=== PATIENT | male | born 1965 | race Caucasian/White ===

== ENCOUNTER 2016-04-16 10:38 | Inpatient (IN) | payer MEDICARE, OTHER ==
[~2016-04-16] VITALS: Ht 170.2 cm; Wt 72.3 kg
[~2016-04-16 10:38] MED LIST: ALEN70TA39 PO; CALCIUM PO; CORT1OIN2 TOP; DEPA500T2 PO; DERMOPLAST TOP; EXCETAB80 PO; FOLI1TAB2 PO; FOSA70TA PO; IMOD2TAB14 PO; LOMO2.5T PO; MERC50TA2 PO; OMEP20CA3 PO; ONDA1TAB15 PO; OXYC1TAB23 PO; POTA20EL PO; POTA4.25 PO; PROZ40CA PO; SULF1TAB PO; SULF500T2 PO; VIT D PO; VITA-113 SC; VITA1CAP25 PO; VITA500046 PO; VITA500055 PO; ZOFR20TA PO
[2016-04-16] MEDS ORDERED: HALOPERIDOL 5 MG TAB As Ordered ONE (11:00)
[2016-04-16] MEDS ORDERED: LORazepam 1 MG TAB As Ordered ONE (11:00)
[2016-04-16] MEDS ORDERED: BENZTROPINE 1 MG TAB PO ONE (11:30)
[2016-04-16 12:55] LABS: MEAN CORPUSCULAR HEMOGLOBIN 30.7 pg (27.0-33.0); MEAN CORPUSCULAR HGB CONC 34.3 g/dl (32.0-36.5); MEAN CORPUSCULAR VOLUME 89.5 fl (80.0-96.0); RED CELL DISTRIBUTION WIDTH 13.7 % (11.5-14.5); WHITE BLOOD COUNT 7.4 K/mm3 (4.0-10.0)
[2016-04-16 13:15] LABS: AMPHETAMINES LEVEL URINE NEGATIVE (NEGATIVE); BENZODIAZEPINES URINE NEGATIVE (NEGATIVE); COCAINE METABOLITE URINE NEGATIVE (NEGATIVE); CONTROL LINE INT CTR LINE PRESENT; METHADONE URINE NEGATIVE (NEGATIVE); OPIATES URINE NEGATIVE (NEGATIVE); TRICYCLIC ANTIDEPRESS URINE NEGATIVE (NEGATIVE)
[2016-04-16 13:21] LABS: ANION GAP 9 MEQ/L (8-16); BLOOD UREA NITROGEN 7 MG/DL (7-18); CARBON DIOXIDE LEVEL 28 MEQ/L (21-32); CHLORIDE LEVEL 105 MEQ/L (98-107); CREATININE FOR GFR 0.93 MG/DL (0.70-1.30); GLOMERULAR FILTRATION RATE > 60.0 (>60); GLUCOSE, FASTING 92 MG/DL (70-105); POTASSIUM SERUM 3.9 MEQ/L (3.5-5.1); SODIUM LEVEL 142 MEQ/L (136-145)
[2016-04-16 13:22] LABS: ALBUMIN 4.4 GM/DL (3.2-5.2); ALBUMIN/GLOBULIN RATIO 1.38 (1.00-1.93); ALKALINE PHOSPHATASE 73 U/L (45-117); ALT/SGPT 53 U/L (12-78); AST/SGOT 37 U/L (15-37); BILIRUBIN,DIRECT 0.1 MG/DL (0.0-0.2); BILIRUBIN,TOTAL 0.4 MG/DL (0.2-1.0); CALCIUM LEVEL 9.2 MG/DL (8.5-10.1); TOTAL PROTEIN 7.6 GM/DL (6.4-8.2)
--- NOTE | 2016-04-16 14:46 | EDDOCDS ---
Physician Documentation [facility] Name: Jackson Rojas Age: 50 yrs Sex: Male : 1965 Arrival Date: 04/16/2016 Time: 10:38 Bed U3 Private MD: Disposition: 04/16 14:22 Critical Care: Critical care not applicable. pc Disposition: 04/16/16 14:23 Hospitalization ordered by Mattie Harris for Inpatient Admission. Preliminary diagnosis is Delusional disorders. - Bed requested for Admit. - Status is Inpatient Admission. rs3 - Condition is Stable. - Problem is new. - Symptoms are unchanged. HPI: 11:10 This 50 yrs old Male presents to ER via Police Car with complaints of Psych pc Problem. 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 Narayanan. A reliable pc history and/or examination was not able to be obtained, due to an uncooperative/violent patient. The patient presents to the emergency department with paranoia. He has been off of his meds and missing his appointment and a brain picker order was requested by his Psychiatrist. He is arguing with the [facility] that escorted him here, with fleeting ideas and paranoid themes. Historical: - Allergies: Dilaudid (Rash); GABAPENTIN (mood swings); Vicodin; - Home Meds: 1. alendronate 70 mg oral tab 1 tab once wkly 2. Prozac 40 mg Oral cap 1 cap once daily 3. Lomotil 2.5-0.025 mg oral tab 1 tabs 4 times per day PRN 4. Imodium A-D 2 mg oral tab 8 times daily as needed 5. mercaptopurine 50 mg oral tab 1.5 tab once daily 6. Sulfazine 500 mg oral tab 6 tab daily 7. omeprazole 20 mg Oral cpDR 1 cap once daily 8. Vitamin D3 5,000 unit oral tab 2 x a week 9. ondansetron HCl 4 mg Oral tab every 8 hours 10. vitamin b12 1000 units SQ monthy 11. lidocaine 5% application to affected area as needed 12. Potassium Chloride Oral 1 cap once daily 13. acyclovir 800 mg Oral tab daily 14. tamsulosin 0.4 mg oral cp24 1 cap once daily 15. ketorolac 10 mg Oral tab 1 tab every 6 hours as needed 16. oxybutynin chloride 5 mg Oral tab every 8 hours PRN 17. oxycodone-acetaminophen 5-325 mg Oral tab 1 tab every 6 hours prn - PMHx: Arthritis; Chron's Disease; Depression; GERD; Kidney stones; Shingles; - PSHx: multiple bowel resections; Appendectomy; laser surgery with stent placement in right kidney; - The history from nurses notes was reviewed: but there are no nursing notes, or only partial notes available at the time of my charting. - Social history: Smoking status: unknown if patient ever smoked tobacco. No barriers to communication noted, The patient speaks fluent Wolof, Speaks appropriately for age. - : The pt / caregiver states he / she is not on anticoagulants. Home medication list is obtained from pain clinic report. - Exposure Risk Screening:: None identified. - Immunization history:: unknown. - Family history: Not pertinent. - Social history:: the patient smokes cigarettes the patient drinks alcohol. ROS: 11:10 unable to reliably obtain . pc Exam: 11:10 General Appearance: alert, no acute distress. pc 11:10 ENT: pharynx normal. 11:10 Eyes: pupils equal, round and reactive to light, extraocular motions intact. 11:10 Neck: The exam reveals no acute abnormalities. ROM is normal and painless. No nuchal rigidity is noted.. 11:10 Respiratory: breathing is even and unlabored, breath sounds are normal. 11:10 Cardiovascular: regular pulse rate, regular heart rhythm, normal heart sounds, equal and full pulses bilaterally. 11:10 Skin: skin color is normal, warm, dry. 11:10 Extremities: The extremities have a grossly normal appearance. 11:10 Neuro: alert, cranial nerves normal as tested, no motor deficits, no sensory deficits. 11:10 Psych: mood is hostile, affect is animated. Vital Signs: 11:19 BP 177 / 90; Pulse 90; Resp 18; Temp 99.1(TE); Pulse Ox 98% on R/A; Pain 8/10; mdr 14:39 BP 123 / 65; Pulse 85; Resp 17; Temp 97.2(O); Pulse Ox 97% on R/A; pjf MDM: 10:55 Consult PFS/PSA/Dairy Processing Equipment Operator: Patient's case requires discussion with on-call pc Psychiatrist ordered. 10:55 PSA/PFS to call Nursing Government Affairs Specialist, to enter patient data on [facility] Safe Act if patient pc involuntarily admitted or transferred for SI or HI ordered. 10:55 Confirm accurate psychiatric medication list and times of last dosage ordered. pc 10:55 Detain Pt Until Medically/PFS Cleared ordered. pc 10:56 Haloperidol 5 mg PO once ordered. pc 10:56 LORazepam 2 mg PO once ordered. pc 10:56 Benztropine 1 mg PO once ordered. pc 10:56 Acetaminophen Level Ordered. EDMS 10:56 Basic Metabolic Profile Ordered. EDMS 10:56 Complete Blood Count Ordered. EDMS 10:56 Drug Eval Toxicology ED Only Ordered. EDMS 10:56 Ethyl Alcohol (ethanol) Ordered. EDMS 10:56 Liver Profile Ordered. EDMS 10:56 Salicylate Level Ordered. EDMS 10:56 Thyroid Stimulating Hormone Ordered. EDMS 10:56 DEPAKOTE Ordered. EDMS 11:10 Differential diagnosis: paranoia/psychosis. Plan: labs, meds, PFS when cleared. pc 11:17 Financial registration complete. mm15 12:13 [facility] Payment Agreement was scanned into [employer] and attached to record. mm15 12:46 REGULAR DIET ROOM SERVICE ED+DIET ordered. EDMS 13:27 Acetaminophen Level Reviewed. pc 13:27 Salicylate Level Reviewed. pc 13:27 DEPAKOTE Reviewed. pc 13:27 Basic Metabolic Profile Reviewed. pc 13:27 Complete Blood Count Reviewed. pc 13:27 Drug Eval Toxicology ED Only Reviewed. pc 13:27 Ethyl Alcohol (ethanol) Reviewed. pc 13:27 Liver Profile Reviewed. pc 13:27 Thyroid Stimulating Hormone Reviewed. pc 13:32 SYNTHETIC THC URINE Ordered. EDMS 13:45 BED REQUEST+ADM ordered. EDMS 14:12 [facility] Legal paperwork was scanned into [employer] and attached to record. ml4 14:12 Admit to IM: ordered. EDMS 14:22 The patient has been medically cleared for psychiatric evaluation, admission and/or pc transfer. [place] Safe Act reporting: Reporting to the [place] Safe Act was not completed because the patient did not display any suicidal or homicidal ideation and was not considered a risk to self or others. Data reviewed: old medical records, vital signs, nurses notes, lab test results. Test interpretation: LAB - all labs as ordered have been reviewed, interpreted and considered in the overall management of the clinical presentation;. The patient has been re-examined and re-evaluated. The patient's symptoms have mildly improved after treatment. Disposition: The historical points, examination findings, and any diagnostic results supporting the provided diagnosis, were discussed with the patient or legal guardian. The need for further work-up and/or treatment in the hospital was explained. Administered Medications: 11:18 Drug: Haloperidol 5 mg [haloperidol 5 mg tablet (1 tabs)] Route: PO; js13 11:18 Drug: LORazepam 2 mg [lorazepam 1 mg tablet (2 tabs)] Route: PO; js13 12:00 Drug: Benztropine 1 mg [benztropine 1 mg tablet (1 tabs)] Route: PO; js13 Signatures: Dispatcher [employer] EDMS Demarco Broussard MD MD pc Kim-Ashcraft, Connie,RN RN ck1 Rosanne Oquendo, PSA PSA ml4 Carey SimonRN RN rs3 Lc Wilkins mm15 Mary Burden RN RN aa3 Allyn Nath RN [id number] The chart was reviewed and I authenticate all verbal orders and agree with the evaluation and treatment provided.Attachments: 12:13 [facility] Payment Agreement mm15 MTDD
--- NOTE | 2016-04-16 14:46 | EDDOCDS ---
Nurse's Notes [facility] Name: Jackson Rojas Age: 50 yrs Sex: Male : 1965 Arrival Date: 04/16/2016 Time: 10:[address] MD: Diagnosis: Delusional disorders Presentation: 04/16 10:47 Presenting complaint: [facility] police. Mental Health Triage Level: Level 2: The patient aa3 was brought to the ED for evaluation because of a legal pickup order. Adult Sepsis Screening: Patient has new or worsening altered mentation (1 point). Patient's respiratory rate is less than 22. Systolic blood pressure is greater than 100. Patient has a qSOFA score of 1- Negative Sepsis Screen. Mental Health Triage Level: Level 2: The patient was brought to the ED for evaluation because of a legal pickup order. Suicide/Homicide risk assessment- the patient denies having any suicidal and/or homicidal ideations and does not present with any other emotional, behavioral or mental health complaints. Status: Patient is not a guest service representative or dependent. Transition of care: patient was not received from another setting of care. 10:47 Acuity: JESSEE Level 3 aa3 10:47 Method Of Arrival: Police Car aa3 10:47 Presenting complaint: Patient did not sahow up for Dr. Narayanan appointment. Pick-up order aa3 was placed. Triage Assessment: 14:20 General: Appears in no apparent distress. Pain: Denies pain. Pt Declines HIV testing. rs3 Historical: - Allergies: Dilaudid (Rash); GABAPENTIN (mood swings); Vicodin; - Home Meds: 1. alendronate 70 mg oral tab 1 tab once wkly 2. Prozac 40 mg Oral cap 1 cap once daily 3. Lomotil 2.5-0.025 mg oral tab 1 tabs 4 times per day PRN 4. Imodium A-D 2 mg oral tab 8 times daily as needed 5. mercaptopurine 50 mg oral tab 1.5 tab once daily 6. Sulfazine 500 mg oral tab 6 tab daily 7. omeprazole 20 mg Oral cpDR 1 cap once daily 8. Vitamin D3 5,000 unit oral tab 2 x a week 9. ondansetron HCl 4 mg Oral tab every 8 hours 10. vitamin b12 1000 units SQ monthy 11. lidocaine 5% application to affected area as needed 12. Potassium Chloride Oral 1 cap once daily 13. acyclovir 800 mg Oral tab daily 14. tamsulosin 0.4 mg oral cp24 1 cap once daily 15. ketorolac 10 mg Oral tab 1 tab every 6 hours as needed 16. oxybutynin chloride 5 mg Oral tab every 8 hours PRN 17. oxycodone-acetaminophen 5-325 mg Oral tab 1 tab every 6 hours prn - PMHx: Arthritis; Chron's Disease; Depression; GERD; Kidney stones; Shingles; - PSHx: multiple bowel resections; Appendectomy; laser surgery with stent placement in right kidney; - The history from nurses notes was reviewed: but there are no nursing notes, or only partial notes available at the time of my charting. - Social history: Smoking status: unknown if patient ever smoked tobacco. No barriers to communication noted, The patient speaks fluent Iraqi, Speaks appropriately for age. - : The pt / caregiver states he / she is not on anticoagulants. Home medication list is obtained from pain clinic report. - Exposure Risk Screening:: None identified. - Immunization history:: unknown. - Family history: Not pertinent. - Social history:: the patient smokes cigarettes the patient drinks alcohol. Screenin:43 Screening information is obtained from the patient. Fall risk: No risks identified. rs3 Assistance ADL's: requires no assistance with activities of daily living. Abuse/DV Screen: The patient / caregiver reports he/she is: not in a situation that causes fear, pain or injury. Nutritional screening: No deficits noted. Advance Directives: Currently, there is no health care proxy. There is no active DNR order. home support is adequate. Assessment: 12:44 General: Appears in no apparent distress, Behavior is appropriate for age, cooperative. rs3 Pain: Denies pain. Neurological: Level of Consciousness is awake, alert, Oriented to person, place, time. Cardiovascular: Capillary refill < 3 seconds Heart tones S1 S2 present. Respiratory: Airway is patent Respiratory effort is even, unlabored. Derm: Skin is pink, warm & dry. 13:40 General: Appears in no apparent distress, Behavior is appropriate for age, cooperative. rs3 General: Eating lunch. . Pain: Denies pain. Neurological: No deficits noted. 14:25 General: Appears in no apparent distress, Behavior is appropriate for age, cooperative, rs3 denies of distress/pain. resting comfortable. . Mental Health Eval: 11:29 Mental health consult is initiated at 11:00. Status: The patient is not a ml4 guest service representative or dependent. [facility] Behavioral Health: The patient is established as a patient of [facility] Behavioral Health. Referral Information: Evaluation referral is generated by a police agency: [facility], Badge #[id number]) on a 9.41 . The patient was referred for evaluation because pt was recently seen on 04/14, however was discharged home. Over the past 2 days, pt continues decompensate and appears acutely psychotic from smoking Marijuana. . Subjective: The patients chief complaint is pt states, "I'm done and I need to contact Dr. Narayanan because his anti-suicidal word is uncle." Pt appears acutely psychotic and is religiously pre-occupied. He repeatedly is undressing himself leaving himself naked while urinating on the floor. He's making comments that do not makes sense, e.g., " Lets get the earth moving." Pt is not coherent, appears to be responding to internal stimuli. PSA contacted pt's (Xenia, ) who reports pt has been seeing Dr. Narayanan for the past 15 years, mostly for depression and anxiety. He started to exhibit psychotic behavior after smoking Marijuana (Apr, 2015) for the first time to help with nerve pain from Shingles. adds, pt stopped taking his Prozac 1 month ago and continues to not want to take his Xanax, he missed his last appt with Dr. Narayanan. Pt continues to smoke Marijuana and now it's increasing in frequency causing pt to decompensate further. Allegedly, pt ingested an unknown substance with Marijuana this morning which may be contributing to his behavior. Pt has been praying to God to kill him, which is not typical behavior for him due to not being a anabaptism person. adds pt grabbed his 21 year old daughter and 12 year old grandson 2 days ago and held them on the couch due to fearing for their safety. Pt felt something bad was going to happen to them and refused to let them go until he was convinced otherwise. Pt denies SI and HI, however is not safe to be d/c due to the severity of his psychosis. Additionally, pt is reported to be paranoid due to suspecting his is cheating on him. . Delusions are anabaptism, paranoid, Patient's mood is anxious, elevated, Auditory Hallucinations are suspected. Visual Hallucinations are suspected. Mental Health history: anxiety, depression, Substance abuse psychosis, rule out bi-polar disorder . Mental Health Admissions: [facility] 11/29/15 and discharged 12/11/15 Current Outpatient Mental Health Services: Psychiatrist / Agency: Dr. Narayanan/[facility] . Mental Health history: Current living environment is Family / Home Support: adequate The patient currently lives. Patient presents to Emergency Department with the following symptoms within the past 2 weeks: agitation, anger, anxiety, decreased appetite, delusions of grandeur, pt believes he has special baird with God. . depressed mood, auditory hallucinations visual hallucinations, paranoia, poor concentration, poor impulse control, psychosis, sleep disturbance - insomnia, suicidal ideation with no plan. Substance abuse: Patient uses marijuana. Mental status exam: Patients appearance is appropriate, Patient's behavior is bizarre, Speech is pressured. Affect is labile. Mood is anxious. Hallucinations are Denied, however heavily suspected . Appetite is poor. Memory is fair. Energy level is hyperactive. Content of thought is paranoid. as described above delusional. as described above Thought process is incoherent. Cognitive level is Oriented to person, Patient's insight is poor. Judgement is poor. Rapport with interviewer is poor. Suicidal Ideation is not present. Homicidal ideation is not present. Disposition: Medically cleared for disposition by Demarco Broussard MD. Narrative: Awaiting psychiatric consult... 13:36 Disposition: Psychiatric Consult is performed by phone with Dr Mattie Harris. [facility] ml4 Admission Criteria: The patient displays symptoms of severe psychiatric disorder resulting in disordered behavior and significant interference with his / her ability to maintain self care. Hallucinations. Delusions. The patient requires continuous observation and/or control to protect self, others or property. The patient's care requires a multi-modal treatment plan under close supervision and coordination due to the complexity and severity of the patient's symptoms. The patient requires administration and monitoring of psychoactive medications by skilled medical providers due to the side effects of the psychoactive medications or significant dosage adjustments. Legal Status: Patient's legal status will be Emergency admission: [place] Safe Act: [place] Safe Act is applicable to this patient. The patient poses a risk to self or other and the Nursing Stock Broker Supervisor has been notified. He/She will enter the patient's data. DSM-V Differential Diagnosis: Substance/Medication-Induced Psychotic Disorder Delusions are severe. Hallucinations are severe. Abnormal psycho-motor behavior is. Insurance Pre-Certification: Not Required, Medicare and [employer] for life . Family Notification: Family notified of admission to [facility], Notification was given to . Narrative: Notice of Status and Rights, FAQ, and Bill of Rights was given at bedside. Awaiting: transfer to [facility]. Vital Signs: 11:19 BP 177 / 90; Pulse 90; Resp 18; Temp 99.1(TE); Pulse Ox 98% on R/A; Pain 8/10; mdr 14:39 BP 123 / 65; Pulse 85; Resp 17; Temp 97.2(O); Pulse Ox 97% on R/A; pjf Vitals: 14:44 Log In time N/A- police car arrival. rs3 ED Course: 10:39 Patient visited by Jaime Kenney, Reg. lg 10:[address] [facility] lg 10:47 Mary Burden,RN is Primary Nurse. aa3 10:47 Patient moved to [facility] aa3 10:48 Triage Initiated aa3 10:55 Demarco Broussard MD is Attending Physician. pc 11:00 Pt greeted and oriented to ED. Patient advised of names of staff involved in care, pjf location of call pnoce, wait times and NPO status. Accompanied by Law Enforcement, [facility] (9.41), Patient has correct armband on for positive identification. Placed in psych safe attire. Bed in low position. Call light in reach. Side rails up X 1. Security observing. Property removed, secured in belongings bag- Placed in locker #3. Door closed. Noise minimized. Visitors limited. Report received from [facility] - psych. triage level #2, ams, confused, ah, cooperative \\T\\ this time. The patient / caregiver is instructed regarding the plan of care and ED course. Psych Safety Check: Location: Psych Room. 11:07 Patient visited by Demarco Broussard MD. pc 11:20 Patient visited by Buzz Steel PCA. mdr 12:04 Patient visited by Ferendzo, Navneet, Security Aide. pjf 12:10 Carey Simon,RN is Primary Nurse. rs3 12:13 [facility] Payment Agreement was scanned into [employer] and attached to record. mm15 12:42 Acetaminophen Level Sent. mdr 12:42 Basic Metabolic Profile Sent. mdr 12:42 Complete Blood Count Sent. mdr 12:42 Drug Eval Toxicology ED Only Sent. mdr 12:42 Ethyl Alcohol (ethanol) Sent. mdr 12:43 Patient visited by Carey Simon RN. rs3 12:43 Liver Profile Sent. mdr 12:43 Thyroid Stimulating Hormone Sent. mdr 12:43 Salicylate Level Sent. mdr 12:44 Patient visited by Navneet Chavez Security Aide. pjf 12:44 DEPAKOTE Sent. rs3 13:00 pt. safety checks completed at approx. 15 min. intervals from the time of arrival to [facility] the time of this entry. prior to rec. medication patient was agitated and required frequent redirection and constant observation. post medication pt. has remained calm and cooperative. 13:01 Patient visited by Navneet Chavez Security Aide. pjf 13:11 Patient visited by Navneet Chavez Security Aide. pjf 13:34 Patient visited by Navneet Chavez Security Aide. pjf 13:45 Psych Safety Check: Location: Psych Room. Visual Assessment: Cooperative. pjf 14:01 Patient visited by Navneet Chavez Security Aide. pjf 14:12 [facility] Legal paperwork was scanned into [employer] and attached to record. ml4 14:14 Patient visited by Navneet Chavez Security Aide. pjf 14:23 Mattie Harris is Hospitalizing Provider. pc 14:44 No IV's were initiated during this patient's visit. No procedures done that require rs3 assistance. Administered Medications: 11:18 Drug: Haloperidol 5 mg [haloperidol 5 mg tablet (1 tabs)] Route: PO; js13 11:18 Drug: LORazepam 2 mg [lorazepam 1 mg tablet (2 tabs)] Route: PO; js13 12:00 Drug: Benztropine 1 mg [benztropine 1 mg tablet (1 tabs)] Route: PO; 13 Attachments: 14:12 [facility] Legal paperwork ml4 Order Results: Lab Order: Acetaminophen Level; SPEC'M 04/16/16 12:40 Test: ACETAMINOPHEN LEVEL; Value: < 2.0; Range: 10.0-30.0; Abnormal: Below low normal; Units: UG/ML; Status: F Lab Order: Basic Metabolic Profile; [facility] 04/16/16 12:40 Test: GLUCOSE, FASTING; Value: 92; Range: 70-105; Units: MG/DL; Status: F Test: BLOOD UREA NITROGEN; Value: 7; Range: 7-18; Units: MG/DL; Status: F Test: CREATININE FOR GFR; Value: 0.93; Range: 0.70-1.30; Units: MG/DL; Status: F Test: GLOMERULAR FILTRATION RATE; Value: > 60.0; Range: >60; Status: F Test: SODIUM LEVEL; Value: 142; Range: 136-145; Units: MEQ/L; Status: F Test: POTASSIUM SERUM; Value: 3.9; Range: 3.5-5.1; Units: MEQ/L; Status: F Test: CHLORIDE LEVEL; Value: 105; Range: 98-107; Units: MEQ/L; Status: F Test: CARBON DIOXIDE LEVEL; Value: 28; Range: 21-32; Units: MEQ/L; Status: F Test: ANION GAP; Value: 9; Range: 8-16; Units: MEQ/L; Status: F Test: CALCIUM LEVEL; Value: 9.2; Range: 8.5-10.1; Units: MG/DL; Status: F Test Note: ; Units are mL/min/1.73 m2 Chronic Kidney Disease Staging per NKF: Stage I & II GFR >=60 Normal to Mildly Decreased Stage III GFR 30-59 Moderately Decreased Stage IV GFR 15-29 Severely Decreased Stage V GFR <15 Very Little GFR Left ESRD GFR <15 on ELECTRICAL ASSEMBLY SUPERVISOR Lab Order: Complete Blood Count; [facility] 04/16/16 12:40 Test: WHITE BLOOD COUNT; Value: 7.4; Range: 4.0-10.0; Units: K/mm3; Status: F Test: RED BLOOD COUNT; Value: 4.78; Range: 4.30-6.10; Units: M/mm3; Status: F Test: HEMOGLOBIN; Value: 14.7; Range: 14.0-18.0; Units: g/dl; Status: F Test: HEMATOCRIT; Value: 42.8; Range: 42.0-52.0; Units: %; Status: F Test: MEAN CORPUSCULAR VOLUME; Value: 89.5; Range: 80.0-96.0; Units: fl; Status: F Test: MEAN CORPUSCULAR HEMOGLOBIN; Value: 30.7; Range: 27.0-33.0; Units: pg; Status: F Test: MEAN CORPUSCULAR HGB CONC; Value: 34.3; Range: 32.0-36.5; Units: g/dl; Status: F Test: RED CELL DISTRIBUTION WIDTH; Value: 13.7; Range: 11.5-14.5; Units: %; Status: F Test: PLATELET COUNT, AUTOMATED; Value: 238; Range: 150-450; Units: k/mm3; Status: F Lab Order: Drug Eval Toxicology ED Only; SPEC'M 04/16/16 12:40 Test: AMPHETAMINES LEVEL URINE; Value: NEGATIVE; Range: NEGATIVE; Status: F Test: BARBITURATES URINE; Value: NEGATIVE; Range: NEGATIVE; Status: F Test: BENZODIAZEPINES URINE; Value: NEGATIVE; Range: NEGATIVE; Status: F Test: CANNABINOIDS URINE; Value: NEGATIVE; Range: NEGATIVE; Status: F Test: COCAINE METABOLITE URINE; Value: NEGATIVE; Range: NEGATIVE; Status: F Test: METHADONE URINE; Value: NEGATIVE; Range: NEGATIVE; Status: F Test: OPIATES URINE; Value: NEGATIVE; Range: NEGATIVE; Status: F Test: TRICYCLIC ANTIDEPRESS URINE; Value: NEGATIVE; Range: NEGATIVE; Status: F Test Note: ; ALL PRESUMPTIVE POSITIVE FINDINGS ARE UNCONFIRMED NORMAL VALUES THRESHOLD IN NG/ML AMPHETAMINES 1000 METHAMPHETAMINES 1000 BARBITURATES 300 BENZODIAZEPINES 300 CANNABINOIDS (THC) 50 COCAINE METABOLITE 300 METHADONE 300 OPIATES 300 PHENCYCLIDINE 25 TRICYCLIC ANTIDEPRESSANTS 1000 RESULTS ARE FOR MEDICAL PURPOSES ONLY. ALL URINE SPECIMENS WILL BE SAVED FOR 3 DAYS. IF CONFIRMATION OF A PRESUMPTIVE POSTIVE SCREEN RESULT IS DESIRED, CALL CHEMISTRY ([phone]) AND REQUEST URINE TO BE SENT TO REFERENCE LAB. FOR A LIST OF CLOSELY RELATED COMPOUNDS PLEASE CALL THE LAB. Lab Order: Ethyl Alcohol (ethanol); SPEC'M 04/16/16 12:40 Test: ETHYL ALCOHOL (ETHANOL); Value: < 0.003; Range: 0.000-0.010; Units: %; Status: F Lab Order: Liver Profile; [facility] 04/16/16 12:40 Test: AST/SGOT; Value: 37; Range: 15-37; Units: U/L; Status: F Test: ALT/SGPT; Value: 53; Range: 12-78; Units: U/L; Status: F Test: ALKALINE PHOSPHATASE; Value: 73; Range: 45-117; Units: U/L; Status: F Test: BILIRUBIN,TOTAL; Value: 0.4; Range: 0.2-1.0; Units: MG/DL; Status: F Test: BILIRUBIN,DIRECT; Value: 0.1; Range: 0.0-0.2; Units: MG/DL; Status: F Test: TOTAL PROTEIN; Value: 7.6; Range: 6.4-8.2; Units: GM/DL; Status: F Test: ALBUMIN; Value: 4.4; Range: 3.2-5.2; Units: GM/DL; Status: F Test: ALBUMIN/GLOBULIN RATIO; Value: 1.38; Range: 1.00-1.93; Status: F Lab Order: Salicylate Level; [facility] 04/16/16 12:40 Test: SALICYLATE LEVEL; Value: < 1.7; Range: 5.0-30.0; Abnormal: Below low normal; Units: MG/DL; Status: F Lab Order: Thyroid Stimulating Hormone; [facility] 04/16/16 12:40 Test: THYROID STIMULATING HORMONE; Value: 1.940; Range: 0.358-3.740; Units: uIU/ML; Status: F Lab Order: DEPAKOTE; [facility] 04/16/16 12:40 Test: VALPROIC ACID (DEPAKOTE); Value: < 3.0; Range: 50.0-100.0; Abnormal: Below low normal; Units: UG/ML; Status: F Outcome: 14:23 Decision to Hospitalize by Provider. 14:43 Discharge Assessment: patient administered narcotics - no. The following High Risk rs3 Discharge criteria are identified: None. Admitted to [facility] accompanied by tech, via wheelchair, with chart. Condition: stable. No special radiology studies were completed. Admission hand-off: Report Faxed Fax receipt verified by unit staff. 14:45 Patient left the ED. rs3 Signatures: Demarco Broussard MD MD pc Ganter, LoriLee, Reilly Reg Navneet Godoy, AidMihaela Hughes,RN RN ck1 Rosanne Oquendo, PSA PSA ml4 Carey SimonRN RN rs3 Allyn Nath RN RN js13 Lc Wilkins mm15 Mary Burden RN RN aa3 Buzz Steel, POLICE AIDE POLICE AIDE mdr MTDD
[2016-04-16] MEDS ORDERED: MERC50TA2 PO (15:03)
[2016-04-16] MEDS ORDERED: ACYC800T PO (15:03)
[2016-04-16] MEDS ORDERED: OMEP20CA3 PO (15:03)
[2016-04-16] MEDS ORDERED: XANA0.25 PO (15:03)
[2016-04-16] MEDS ORDERED: ALEN70TA39 PO (15:03)
[2016-04-16] MEDS ORDERED: HYDR1TAB97 PO (15:03)
[2016-04-16 15:17] VITALS: BP 135/79
[2016-04-16] MEDS ORDERED: MOM 30ML SUSPENSION UDC PO PRN (16:30)
[2016-04-16] MEDS ORDERED: MAALOX 30 ML SUSP *UDC PO PRN (16:30)
[2016-04-16] MEDS: LORazepam 1 MG TAB PO PRN (22:34)
[2016-04-16] MEDS: diphenhydrAMINE 25 MG CAP PO PRN (22:34)
[2016-04-16] MEDS: traZODone 50 MG TAB PO PRN (22:35)
[2016-04-17] MEDS: LORazepam 1 MG TAB PO PRN ×2 (05:47→19:57)
[2016-04-17 06:34] VITALS: BP 122/85
[2016-04-17] MEDS: POTASSIUM CHLORIDE 10 MEQ SR TABLET PO SCH ×2 (09:00→19:57)
--- NOTE | 2016-04-17 10:14 | HPEPDOC ---
Medical History and Physical Date of Admission Apr 16, 2016 at 14:57 History and Physical PCP: [facility] Gastroenterology: Dr Betsy Gerber ATTENDING: Dr. Joseluis Salvador HPI: 50yoM admitted to [facility] for psychotic disorder unspecified, being medically examined today. No acute medical complaints today. Denies any fevers, chills, weakness, fatigue, DONOHUE, CP, SOB, cough, palpitations, abdominal pain, N/V/D or changes in bowel or bladder habits. PMHx: Crohn's disease Osteoporosis Depression Poor dentition GERD History of shingles/postherpetic neuropathy BPH OAB History of kidney stones PSHX: Multiple bowel resections Appendectomy Right renal stent/stent removal SOCHX: Resides in: [place] Marital Status: Kids: 2 Employment: Retired [employer] Tobacco use: Denies ETOH: 6 beers per month Illicit Drugs: Marijuana daily IV Drug Use: Denies Tattoos done unprofessionally: Denies FAMHX: Mother: Alive, well Father: , CAD Siblings: Alive, well Children: Alive, well Unexpected deaths due to medical reasons: None. ROS: As noted in HPI, otherwise 11pt ROS of systems reviewed and remarkable that patient states his Crohn's has been controlled. No abdominal pain. No diarrhea. No changes with bowel habits. PE: GEN: 50 yo M, appears stated age. Well-nourished, well developed. No acute distress. Alert and oriented x 3. Pleasant, interactive. HEENT: Normocephalic, atraumatic. Pupils are equal, round, and reactive to light. Extraocular movements are intact. No nystagmus appreciated. Sclera are nonicteric. Conjunctiva without injection. Nose midline. Nasal turbinates without bogginess. EACs both patent BL. TMs both visualized and palacios with good cone of light, no bulging or erythema. No facial asymmetry. Moist mucous membranes. Dentition poor. Pharynx pink and moist, no cobblestoning. Neck supple , trachea midline. No lymphadenopathy or thyromegaly appreciated. CHEST: Regular rate and rhythm, +S1, +S2 LUNGS: Clear to auscultation bilaterally. No wheezes, rales, or rhonchi. Breathing appears symmetric and easy. Patient is speaking in full sentences. No accessory muscle use. ABD: Round, soft, non-tender, non-distended. +Bowel sounds throughout. No rebound or guarding. No costovertebral angle tenderness. EXT: Pulses 2+ bilaterally dorsalis pedis and radial. No lower extremity edema appreciated. SKIN: [place], dry, warm. Capillary refill <2sec. No rashes. Multiple healed surgical scars on the abdomen NEURO: Alert and oriented x 3. Cranial nerves III-XII are intact. No focal deficits appreciated. EKG: Pending A&P: 50yoM admitted to [facility] for psychotic disorder unspecified 1. Psych. Plan per Psychiatry. Obtain baseline EKG to assure the safety of psychiatric medications as they can prolong the QT interval. 2. Crohn's disease. Continue sulfasalazine 1000 mg by mouth 4 times a day. Patient may use mercaptopurine 50 mg by mouth twice a day from home. 3. GERD. Continue Prilosec 20 mg daily. 4. [facility] 5. Substance use. Per psychiatry. 6. Postherpetic neuralgia. Continue acyclovir 800 mg daily as previously recommended as per pain clinic. Patient states he has not been using any Percocet. 7. Poor dentition. Patient has dental appointment at discharge with MA. Patient states no current dental issues or pain. Vital Signs Vital Signs Label Value Date Time Patient Temperature 96.2 degrees F 04/17/16 0634 Temperature Source Tympanic 04/17/16 0634 Pulse 77 04/17/16 0634 Respiratory Rate 18 bpm 04/17/16 0634 Blood Pressure Assessment 122/85 (97) 04/17/16 0634 Laboratory Data Labs 24H Laboratory Tests 2 04/16/16 12:40: Acetaminophen Level < 2.0L, Aspartate Amino Transf (AST/SGOT) 37, Alanine Aminotransferase (ALT/SGPT) 53, Alkaline Phosphatase 73, Total Bilirubin 0.4, Direct Bilirubin 0.1, Albumin 4.4, Albumin/Globulin Ratio 1.38, Anion Gap 9, Calcium Level 9.2, Ethyl Alcohol Level < 0.003, Glomerular Filtration Rate > 60.0, Salicylates Level < 1.7L, Thyroid Stimulating Hormone (TSH) 1.940, Total Protein 7.6, Urine Amphetamine Level NEGATIVE, Urine Benzodiazepines Screen NEGATIVE, Urine Cannabinoids NEGATIVE, Urine Cocaine Metabolite NEGATIVE, Urine Opiates Screen NEGATIVE, Urine Barbiturates, Qualitative NEGATIVE, Urine Methadone Screen NEGATIVE, Urine Tricyclic Antidepressants NEGATIVE, Valproic Acid (Depakene) Level < 3.0L 04/16/16 14:29: CBC/BMP Laboratory Tests 04/16/16 12:40 Red Blood Count 4.78, Mean Corpuscular Volume 89.5, Mean Corpuscular Hemoglobin 30.7, Mean Corpuscular Hemoglobin Concent 34.3, Red Cell Distribution Width 13.7 Home Medications Scheduled Acyclovir (Acyclovir) 800 Mg Tab 800 MG PO DAILY Alendronate Sodium (Alendronate Sodium) 70 Mg Tab 70 MG PO QWEEK Cholecalciferol (Vitamin D) 5,000 Unit Tab 5,000 UNIT PO 2XW Nutritional supplement Cyanocobalamin (Vitamin B-12) 1,000 Mcg Sub 1,000 MCG SC QMONTH Nutritional supplement Fluoxetine HCl (Prozac) 40 Mg Cap 40 MG PO DAILY FILLED 11/29/15 FOR 90 DAYS Mercaptopurine (Mercaptopurine) 50 Mg Tab 50 MG PO BID Omeprazole (Omeprazole) 20 Mg Cap 20 MG PO DAILY Gerd Potassium Citrate (Potassium Citrate ER) 15 Meq Tab 15 MEQ PO BID Sulfasalazine (Sulfasalazine) 500 Mg Tab 1,000 MG PO QID Bowel care with Crohn' s diseas Scheduled PRN Acetaminophen/Hydrocodone (Hydrocodone/Acetaminophen 5-325 mg) 1 Tab Tab 1 TAB PO DAILY PRN PRN PAIN Alprazolam (Xanax) 0.25 Mg Tab 0.25 MG PO BID PRN PRN ANXIETY Allergies Coded Allergies: Hydromorphone (Unverified Adverse Reaction, Intermediate, vomitting and hives, 11/29/15) Gabapentin (Verified Adverse Reaction, Unknown, moodswings, 11/29/15) Patti Buchanan Apr 17, 2016 10:13
[2016-04-17] MEDS: OMEPRAZOLE 20 MG CAP PO SCH (11:03)
[2016-04-17] MEDS: sulfaSALAzine 500 MG TABEC PO SCH ×4 (11:03→19:58)
[2016-04-17] MEDS: ACYCLOVIR 200 MG CAPSULE PO SCH (11:04)
[2016-04-17] MEDS: ACETAMINOPHEN TAB 650MG DOSE (2X325MG) PO PRN (13:10)
[2016-04-17] MEDS: EXCEDRIN MIGRAINE TABLET PO PRN (16:27)
[2016-04-17 18:00] VITALS: BP 140/75
[2016-04-17] MEDS: diphenhydrAMINE 25 MG CAP PO PRN (19:57)
[2016-04-17] MEDS: traZODone 50 MG TAB PO PRN (19:57)
[2016-04-18 06:48] VITALS: BP 141/68
[2016-04-18] MEDS: sulfaSALAzine 500 MG TABEC PO SCH ×4 (08:06→21:03)
[2016-04-18] MEDS: OMEPRAZOLE 20 MG CAP PO SCH (08:06)
[2016-04-18] MEDS: ACYCLOVIR 200 MG CAPSULE PO SCH (08:06)
[2016-04-18] MEDS ORDERED: INFLUENZA QUADRIVALENT PF VACCINE 0.5ML SYRINGE/VIAL (90686) IM ONE (09:00)
[2016-04-18] MEDS: POTASSIUM CHLORIDE 10 MEQ SR TABLET PO SCH ×2 (09:00→21:03)
[2016-04-18] MEDS: ACETAMINOPHEN TAB 650MG DOSE (2X325MG) PO PRN ×2 (14:05→21:04)
--- NOTE | 2016-04-18 15:46 | EDDOCDS ---
Physician Documentation [facility] Name: Jackson Rojas Age: 50 yrs Sex: Male : 1965 Arrival Date: 04/16/2016 Time: 10:38 Bed U3 Private MD: Disposition: 04/16 14:22 Critical Care: Critical care not applicable. pc Disposition: 04/16/16 14:23 Hospitalization ordered by Mattie Harris for Inpatient Admission. Preliminary diagnosis is Delusional disorders. - Bed requested for Admit. - Status is Inpatient Admission. rs3 - Condition is Stable. - Problem is new. - Symptoms are unchanged. HPI: 11:10 This 50 yrs old Male presents to ER via Police Car with complaints of Psych pc Problem. 11:10 The history is obtained from the patient, a police records clerk, Dr. Narayanan. A reliable pc history and/or examination was not able to be obtained, due to an uncooperative/violent patient. The patient presents to the emergency department with paranoia. He has been off of his meds and missing his appointment and a seed cone picker order was requested by his Psychiatrist. He is arguing with the [facility] that escorted him here, with fleeting ideas and paranoid themes. Historical: - Allergies: Dilaudid (Rash); GABAPENTIN (mood swings); Vicodin; - Home Meds: 1. alendronate 70 mg oral tab 1 tab once wkly 2. Prozac 40 mg Oral cap 1 cap once daily 3. Lomotil 2.5-0.025 mg oral tab 1 tabs 4 times per day PRN 4. Imodium A-D 2 mg oral tab 8 times daily as needed 5. mercaptopurine 50 mg oral tab 1.5 tab once daily 6. Sulfazine 500 mg oral tab 6 tab daily 7. omeprazole 20 mg Oral cpDR 1 cap once daily 8. Vitamin D3 5,000 unit oral tab 2 x a week 9. ondansetron HCl 4 mg Oral tab every 8 hours 10. vitamin b12 1000 units SQ monthy 11. lidocaine 5% application to affected area as needed 12. Potassium Chloride Oral 1 cap once daily 13. acyclovir 800 mg Oral tab daily 14. tamsulosin 0.4 mg oral cp24 1 cap once daily 15. ketorolac 10 mg Oral tab 1 tab every 6 hours as needed 16. oxybutynin chloride 5 mg Oral tab every 8 hours PRN 17. oxycodone-acetaminophen 5-325 mg Oral tab 1 tab every 6 hours prn - PMHx: Arthritis; Chron's Disease; Depression; GERD; Kidney stones; Shingles; - PSHx: multiple bowel resections; Appendectomy; laser surgery with stent placement in right kidney; - The history from nurses notes was reviewed: but there are no nursing notes, or only partial notes available at the time of my charting. - Social history: Smoking status: unknown if patient ever smoked tobacco. No barriers to communication noted, The patient speaks fluent Ukrainian, Speaks appropriately for age. - : The pt / caregiver states he / she is not on anticoagulants. Home medication list is obtained from pain clinic report. - Exposure Risk Screening:: None identified. - Immunization history:: unknown. - Family history: Not pertinent. - Social history:: the patient smokes cigarettes the patient drinks alcohol. ROS: 11:10 unable to reliably obtain . pc Exam: 11:10 General Appearance: alert, no acute distress. pc 11:10 ENT: pharynx normal. 11:10 Eyes: pupils equal, round and reactive to light, extraocular motions intact. 11:10 Neck: The exam reveals no acute abnormalities. ROM is normal and painless. No nuchal rigidity is noted.. 11:10 Respiratory: breathing is even and unlabored, breath sounds are normal. 11:10 Cardiovascular: regular pulse rate, regular heart rhythm, normal heart sounds, equal and full pulses bilaterally. 11:10 Skin: skin color is normal, warm, dry. 11:10 Extremities: The extremities have a grossly normal appearance. 11:10 Neuro: alert, cranial nerves normal as tested, no motor deficits, no sensory deficits. 11:10 Psych: mood is hostile, affect is animated. Vital Signs: 11:19 BP 177 / 90; Pulse 90; Resp 18; Temp 99.1(TE); Pulse Ox 98% on R/A; Pain 8/10; mdr 14:39 BP 123 / 65; Pulse 85; Resp 17; Temp 97.2(O); Pulse Ox 97% on R/A; pjf MDM: 10:55 Consult PFS/PSA/Client Server Developer: Patient's case requires discussion with on-call pc Psychiatrist ordered. 10:55 PSA/PFS to call Nursing Machining Associate, to enter patient data on [facility] Safe Act if patient pc involuntarily admitted or transferred for SI or HI ordered. 10:55 Confirm accurate psychiatric medication list and times of last dosage ordered. pc 10:55 Detain Pt Until Medically/PFS Cleared ordered. pc 10:56 Haloperidol 5 mg PO once ordered. pc 10:56 LORazepam 2 mg PO once ordered. pc 10:56 Benztropine 1 mg PO once ordered. pc 10:56 Acetaminophen Level Ordered. EDMS 10:56 Basic Metabolic Profile Ordered. EDMS 10:56 Complete Blood Count Ordered. EDMS 10:56 Drug Eval Toxicology ED Only Ordered. EDMS 10:56 Ethyl Alcohol (ethanol) Ordered. EDMS 10:56 Liver Profile Ordered. EDMS 10:56 Salicylate Level Ordered. EDMS 10:56 Thyroid Stimulating Hormone Ordered. EDMS 10:56 DEPAKOTE Ordered. EDMS 11:10 Differential diagnosis: paranoia/psychosis. Plan: labs, meds, PFS when cleared. pc 11:17 Financial registration complete. mm15 12:13 [facility] Payment Agreement was scanned into [employer] and attached to record. mm15 12:46 REGULAR DIET ROOM SERVICE ED+DIET ordered. EDMS 13:27 Acetaminophen Level Reviewed. pc 13:27 Salicylate Level Reviewed. pc 13:27 DEPAKOTE Reviewed. pc 13:27 Basic Metabolic Profile Reviewed. pc 13:27 Complete Blood Count Reviewed. pc 13:27 Drug Eval Toxicology ED Only Reviewed. pc 13:27 Ethyl Alcohol (ethanol) Reviewed. pc 13:27 Liver Profile Reviewed. pc 13:27 Thyroid Stimulating Hormone Reviewed. pc 13:32 SYNTHETIC THC URINE Ordered. EDMS 13:45 BED REQUEST+ADM ordered. EDMS 14:12 [facility] Legal paperwork was scanned into [employer] and attached to record. ml4 14:12 Admit to IM: ordered. EDMS 14:22 The patient has been medically cleared for psychiatric evaluation, admission and/or pc transfer. [place]: [place] to the [place] was not completed because the patient did not display any suicidal or homicidal ideation and was not considered a risk to self or others. Data reviewed: old medical records, vital signs, nurses notes, lab test results. Test interpretation: LAB - all labs as ordered have been reviewed, interpreted and considered in the overall management of the clinical presentation;. The patient has been re-examined and re-evaluated. The patient's symptoms have mildly improved after treatment. Disposition: The historical points, examination findings, and any diagnostic results supporting the provided diagnosis, were discussed with the patient or legal guardian. The need for further work-up and/or treatment in the hospital was explained. Administered Medications: 11:18 Drug: Haloperidol 5 mg [haloperidol 5 mg tablet (1 tabs)] Route: PO; js13 11:18 Drug: LORazepam 2 mg [lorazepam 1 mg tablet (2 tabs)] Route: PO; js13 12:00 Drug: Benztropine 1 mg [benztropine 1 mg tablet (1 tabs)] Route: PO; js13 Signatures: Dispatcher [employer] EDMS Demarco Broussard MD MD pc Kim-Ashcraft, Connie,RN RN ck1 Rosanne Oquendo, PSA PSA ml4 Carey SimonRN RN rs3 Lc Wilkins mm15 Mary Burden RN RN aa3 Allyn Nath RN js13 The chart was reviewed and I authenticate all verbal orders and agree with the evaluation and treatment provided.Attachments: 12:13 [facility] Payment Agreement mm15 Chart Complete MTDD
--- NOTE | 2016-04-18 15:46 | EDDOCDS ---
Physician Documentation [facility] Name: Jackson Rojas Age: 50 yrs Sex: Male : 1965 Arrival Date: 04/16/2016 Time: 10:38 Bed U3 Private MD: Disposition: 04/16 14:22 Critical Care: Critical care not applicable. pc Disposition: 04/16/16 14:23 Hospitalization ordered by Mattie Harris for Inpatient Admission. Preliminary diagnosis is Delusional disorders. - Bed requested for Admit. - Status is Inpatient Admission. rs3 - Condition is Stable. - Problem is new. - Symptoms are unchanged. HPI: 11:10 This 50 yrs old Male presents to ER via Police Car with complaints of Psych pc Problem. 11:10 The history is obtained from the patient, a [employer], Dr. Narayanan. A reliable pc history and/or examination was not able to be obtained, due to an uncooperative/violent patient. The patient presents to the emergency department with paranoia. He has been off of his meds and missing his appointment and a oyster picker order was requested by his Psychiatrist. He is arguing with the [facility] that escorted him here, with fleeting ideas and paranoid themes. Historical: - Allergies: Dilaudid (Rash); GABAPENTIN (mood swings); Vicodin; - Home Meds: 1. alendronate 70 mg oral tab 1 tab once wkly 2. Prozac 40 mg Oral cap 1 cap once daily 3. Lomotil 2.5-0.025 mg oral tab 1 tabs 4 times per day PRN 4. Imodium A-D 2 mg oral tab 8 times daily as needed 5. mercaptopurine 50 mg oral tab 1.5 tab once daily 6. Sulfazine 500 mg oral tab 6 tab daily 7. omeprazole 20 mg Oral cpDR 1 cap once daily 8. Vitamin D3 5,000 unit oral tab 2 x a week 9. ondansetron HCl 4 mg Oral tab every 8 hours 10. vitamin b12 1000 units SQ monthy 11. lidocaine 5% application to affected area as needed 12. Potassium Chloride Oral 1 cap once daily 13. acyclovir 800 mg Oral tab daily 14. tamsulosin 0.4 mg oral cp24 1 cap once daily 15. ketorolac 10 mg Oral tab 1 tab every 6 hours as needed 16. oxybutynin chloride 5 mg Oral tab every 8 hours PRN 17. oxycodone-acetaminophen 5-325 mg Oral tab 1 tab every 6 hours prn - PMHx: Arthritis; Chron's Disease; Depression; GERD; Kidney stones; Shingles; - PSHx: multiple bowel resections; Appendectomy; laser surgery with stent placement in right kidney; - The history from nurses notes was reviewed: but there are no nursing notes, or only partial notes available at the time of my charting. - Social history: Smoking status: unknown if patient ever smoked tobacco. No barriers to communication noted, The patient speaks fluent Swedish, Speaks appropriately for age. - : The pt / caregiver states he / she is not on anticoagulants. Home medication list is obtained from pain clinic report. - Exposure Risk Screening:: None identified. - Immunization history:: unknown. - Family history: Not pertinent. - Social history:: the patient smokes cigarettes the patient drinks alcohol. ROS: 11:10 unable to reliably obtain . pc Exam: 11:10 General Appearance: alert, no acute distress. pc 11:10 ENT: pharynx normal. 11:10 Eyes: pupils equal, round and reactive to light, extraocular motions intact. 11:10 Neck: The exam reveals no acute abnormalities. ROM is normal and painless. No nuchal rigidity is noted.. 11:10 Respiratory: breathing is even and unlabored, breath sounds are normal. 11:10 Cardiovascular: regular pulse rate, regular heart rhythm, normal heart sounds, equal and full pulses bilaterally. 11:10 Skin: skin color is normal, warm, dry. 11:10 Extremities: The extremities have a grossly normal appearance. 11:10 Neuro: alert, cranial nerves normal as tested, no motor deficits, no sensory deficits. 11:10 Psych: mood is hostile, affect is animated. Vital Signs: 11:19 BP 177 / 90; Pulse 90; Resp 18; Temp 99.1(TE); Pulse Ox 98% on R/A; Pain 8/10; mdr 14:39 BP 123 / 65; Pulse 85; Resp 17; Temp 97.2(O); Pulse Ox 97% on R/A; pjf MDM: 10:55 Consult PFS/PSA/Emt I/85: Patient's case requires discussion with on-call pc Psychiatrist ordered. 10:55 PSA/PFS to call Nursing Knitted Garment Finisher, to enter patient data on [facility] Safe Act if patient pc involuntarily admitted or transferred for SI or HI ordered. 10:55 Confirm accurate psychiatric medication list and times of last dosage ordered. pc 10:55 Detain Pt Until Medically/PFS Cleared ordered. pc 10:56 Haloperidol 5 mg PO once ordered. pc 10:56 LORazepam 2 mg PO once ordered. pc 10:56 Benztropine 1 mg PO once ordered. pc 10:56 Acetaminophen Level Ordered. EDMS 10:56 Basic Metabolic Profile Ordered. EDMS 10:56 Complete Blood Count Ordered. EDMS 10:56 Drug Eval Toxicology ED Only Ordered. EDMS 10:56 Ethyl Alcohol (ethanol) Ordered. EDMS 10:56 Liver Profile Ordered. EDMS 10:56 Salicylate Level Ordered. EDMS 10:56 Thyroid Stimulating Hormone Ordered. EDMS 10:56 DEPAKOTE Ordered. EDMS 11:10 Differential diagnosis: paranoia/psychosis. Plan: labs, meds, PFS when cleared. pc 11:17 Financial registration complete. mm15 12:13 [facility] Payment Agreement was scanned into [employer] and attached to record. mm15 12:46 REGULAR DIET ROOM SERVICE ED+DIET ordered. EDMS 13:27 Acetaminophen Level Reviewed. pc 13:27 Salicylate Level Reviewed. pc 13:27 DEPAKOTE Reviewed. pc 13:27 Basic Metabolic Profile Reviewed. pc 13:27 Complete Blood Count Reviewed. pc 13:27 Drug Eval Toxicology ED Only Reviewed. pc 13:27 Ethyl Alcohol (ethanol) Reviewed. pc 13:27 Liver Profile Reviewed. pc 13:27 Thyroid Stimulating Hormone Reviewed. pc 13:32 SYNTHETIC THC URINE Ordered. EDMS 13:45 BED REQUEST+ADM ordered. EDMS 14:12 [facility] Legal paperwork was scanned into [employer] and attached to record. ml4 14:12 Admit to IM: ordered. EDMS 14:22 The patient has been medically cleared for psychiatric evaluation, admission and/or pc transfer. [place]: [place] the [place] was not completed because the patient did not display any suicidal or homicidal ideation and was not considered a risk to self or others. Data reviewed: old medical records, vital signs, nurses notes, lab test results. Test interpretation: LAB - all labs as ordered have been reviewed, interpreted and considered in the overall management of the clinical presentation;. The patient has been re-examined and re-evaluated. The patient's symptoms have mildly improved after treatment. Disposition: The historical points, examination findings, and any diagnostic results supporting the provided diagnosis, were discussed with the patient or legal guardian. The need for further work-up and/or treatment in the hospital was explained. Administered Medications: 11:18 Drug: Haloperidol 5 mg [haloperidol 5 mg tablet (1 tabs)] Route: PO; js13 11:18 Drug: LORazepam 2 mg [lorazepam 1 mg tablet (2 tabs)] Route: PO; js13 12:00 Drug: Benztropine 1 mg [benztropine 1 mg tablet (1 tabs)] Route: PO; js13 Signatures: Dispatcher [employer] EDMS Demarco Broussard MD MD pc Kim-Ashcraft, Connie,RN RN ck1 Rosanne Oquendo, PSA PSA ml4 Carey SimonRN RN rs3 Lc Wilkins mm15 Mary Burden RN RN aa3 Allyn Nath RN js13 The chart was reviewed and I authenticate all verbal orders and agree with the evaluation and treatment provided.Attachments: 12:13 [facility] Payment Agreement mm15 Chart Complete MTDD
--- NOTE | 2016-04-18 15:47 | EDDOCDS ---
Nurse's Notes [facility] Name: Jackson Rojas Age: 50 yrs Sex: Male : 1965 Arrival Date: 04/16/2016 Time: 10:[address] MD: Diagnosis: Delusional disorders Presentation: 04/16 10:47 Presenting complaint: [facility] police. Mental Health Triage Level: Level 2: The patient aa3 was brought to the ED for evaluation because of a legal pickup order. Adult Sepsis Screening: Patient has new or worsening altered mentation (1 point). Patient's respiratory rate is less than 22. Systolic blood pressure is greater than 100. Patient has a qSOFA score of 1- Negative Sepsis Screen. Mental Health Triage Level: Level 2: The patient was brought to the ED for evaluation because of a legal pickup order. Suicide/Homicide risk assessment- the patient denies having any suicidal and/or homicidal ideations and does not present with any other emotional, behavioral or mental health complaints. Status: Patient is not a volunteer services director or dependent. Transition of care: patient was not received from another setting of care. 10:47 Acuity: JESSEE Level 3 aa3 10:47 Method Of Arrival: Police Car aa3 10:47 Presenting complaint: Patient did not sahow up for Dr. Narayanan appointment. Pick-up order aa3 was placed. Triage Assessment: 14:20 General: Appears in no apparent distress. Pain: Denies pain. Pt Declines HIV testing. rs3 Historical: - Allergies: Dilaudid (Rash); GABAPENTIN (mood swings); Vicodin; - Home Meds: 1. alendronate 70 mg oral tab 1 tab once wkly 2. Prozac 40 mg Oral cap 1 cap once daily 3. Lomotil 2.5-0.025 mg oral tab 1 tabs 4 times per day PRN 4. Imodium A-D 2 mg oral tab 8 times daily as needed 5. mercaptopurine 50 mg oral tab 1.5 tab once daily 6. Sulfazine 500 mg oral tab 6 tab daily 7. omeprazole 20 mg Oral cpDR 1 cap once daily 8. Vitamin D3 5,000 unit oral tab 2 x a week 9. ondansetron HCl 4 mg Oral tab every 8 hours 10. vitamin b12 1000 units SQ monthy 11. lidocaine 5% application to affected area as needed 12. Potassium Chloride Oral 1 cap once daily 13. acyclovir 800 mg Oral tab daily 14. tamsulosin 0.4 mg oral cp24 1 cap once daily 15. ketorolac 10 mg Oral tab 1 tab every 6 hours as needed 16. oxybutynin chloride 5 mg Oral tab every 8 hours PRN 17. oxycodone-acetaminophen 5-325 mg Oral tab 1 tab every 6 hours prn - PMHx: Arthritis; Chron's Disease; Depression; GERD; Kidney stones; Shingles; - PSHx: multiple bowel resections; Appendectomy; laser surgery with stent placement in right kidney; - The history from nurses notes was reviewed: but there are no nursing notes, or only partial notes available at the time of my charting. - Social history: Smoking status: unknown if patient ever smoked tobacco. No barriers to communication noted, The patient speaks fluent Stateless, Speaks appropriately for age. - : The pt / caregiver states he / she is not on anticoagulants. Home medication list is obtained from pain clinic report. - Exposure Risk Screening:: None identified. - Immunization history:: unknown. - Family history: Not pertinent. - Social history:: the patient smokes cigarettes the patient drinks alcohol. Screenin:43 Screening information is obtained from the patient. Fall risk: No risks identified. rs3 Assistance ADL's: requires no assistance with activities of daily living. Abuse/DV Screen: The patient / caregiver reports he/she is: not in a situation that causes fear, pain or injury. Nutritional screening: No deficits noted. Advance Directives: Currently, there is no health care proxy. There is no active DNR order. home support is adequate. Assessment: 12:44 General: Appears in no apparent distress, Behavior is appropriate for age, cooperative. rs3 Pain: Denies pain. Neurological: Level of Consciousness is awake, alert, Oriented to person, place, time. Cardiovascular: Capillary refill < 3 seconds Heart tones S1 S2 present. Respiratory: Airway is patent Respiratory effort is even, unlabored. Derm: Skin is pink, warm & dry. 13:40 General: Appears in no apparent distress, Behavior is appropriate for age, cooperative. rs3 General: Eating lunch. . Pain: Denies pain. Neurological: No deficits noted. 14:25 General: Appears in no apparent distress, Behavior is appropriate for age, cooperative, rs3 denies of distress/pain. resting comfortable. . Mental Health Eval: 11:29 Mental health consult is initiated at 11:00. Status: The patient is not a ml4 volunteer services director or dependent. [facility] Behavioral Health: The patient is established as a patient of [facility] Behavioral Health. Referral Information: Evaluation referral is generated by a police agency: [facility], Badge #[id number]) on a 9.41 . The patient was referred for evaluation because pt was recently seen on 04/14, however was discharged home. Over the past 2 days, pt continues decompensate and appears acutely psychotic from smoking Marijuana. . Subjective: The patients chief complaint is pt states, "I'm done and I need to contact Dr. Narayanan because his anti-suicidal word is uncle." Pt appears acutely psychotic and is religiously pre-occupied. He repeatedly is undressing himself leaving himself naked while urinating on the floor. He's making comments that do not makes sense, e.g., " Lets get the earth moving." Pt is not coherent, appears to be responding to internal stimuli. PSA contacted pt's (Xenia, ) who reports pt has been seeing Dr. Narayanan for the past 15 years, mostly for depression and anxiety. He started to exhibit psychotic behavior after smoking Marijuana (Apr, 2015) for the first time to help with nerve pain from Shingles. adds, pt stopped taking his Prozac 1 month ago and continues to not want to take his Xanax, he missed his last appt with Dr. Narayanan. Pt continues to smoke Marijuana and now it's increasing in frequency causing pt to decompensate further. Allegedly, pt ingested an unknown substance with Marijuana this morning which may be contributing to his behavior. Pt has been praying to God to kill him, which is not typical behavior for him due to not being a mu-ism person. adds pt grabbed his 21 year old daughter and 12 year old grandson 2 days ago and held them on the couch due to fearing for their safety. Pt felt something bad was going to happen to them and refused to let them go until he was convinced otherwise. Pt denies SI and HI, however is not safe to be d/c due to the severity of his psychosis. Additionally, pt is reported to be paranoid due to suspecting his is cheating on him. . Delusions are mu-ism, paranoid, Patient's mood is anxious, elevated, Auditory Hallucinations are suspected. Visual Hallucinations are suspected. Mental Health history: anxiety, depression, Substance abuse psychosis, rule out bi-polar disorder . Mental Health Admissions: [facility] 11/29/15 and discharged 12/11/15 Current Outpatient Mental Health Services: Psychiatrist / Agency: Dr. Narayanan/[facility] . Mental Health history: Current living environment is Family / Home Support: adequate The patient currently lives. Patient presents to Emergency Department with the following symptoms within the past 2 weeks: agitation, anger, anxiety, decreased appetite, delusions of grandeur, pt believes he has special baird with God. . depressed mood, auditory hallucinations visual hallucinations, paranoia, poor concentration, poor impulse control, psychosis, sleep disturbance - insomnia, suicidal ideation with no plan. Substance abuse: Patient uses marijuana. Mental status exam: Patients appearance is appropriate, Patient's behavior is bizarre, Speech is pressured. Affect is labile. Mood is anxious. Hallucinations are Denied, however heavily suspected . Appetite is poor. Memory is fair. Energy level is hyperactive. Content of thought is paranoid. as described above delusional. as described above Thought process is incoherent. Cognitive level is Oriented to person, Patient's insight is poor. Judgement is poor. Rapport with interviewer is poor. Suicidal Ideation is not present. Homicidal ideation is not present. Disposition: Medically cleared for disposition by Demarco Broussard MD. Narrative: Awaiting psychiatric consult... 13:36 Disposition: Psychiatric Consult is performed by phone with Dr Mattie Harris. [facility] ml4 Admission Criteria: The patient displays symptoms of severe psychiatric disorder resulting in disordered behavior and significant interference with his / her ability to maintain self care. Hallucinations. Delusions. The patient requires continuous observation and/or control to protect self, others or property. The patient's care requires a multi-modal treatment plan under close supervision and coordination due to the complexity and severity of the patient's symptoms. The patient requires administration and monitoring of psychoactive medications by skilled medical providers due to the side effects of the psychoactive medications or significant dosage adjustments. Legal Status: Patient's legal status will be Emergency admission: [place] Safe Act: [place] Safe Act is applicable to this patient. The patient poses a risk to self or other and the [facility] Representative has been notified. He/She will enter the patient's data. DSM-V Differential Diagnosis: Substance/Medication-Induced Psychotic Disorder Delusions are severe. Hallucinations are severe. Abnormal psycho-motor behavior is. Insurance Pre-Certification: Not Required, Medicare and [employer] for life . Family Notification: Family notified of admission to [facility], Notification was given to . Narrative: Notice of Status and Rights, FAQ, and Bill of Rights was given at bedside. Awaiting: transfer to [facility]. Vital Signs: 11:19 BP 177 / 90; Pulse 90; Resp 18; Temp 99.1(TE); Pulse Ox 98% on R/A; Pain 8/10; mdr 14:39 BP 123 / 65; Pulse 85; Resp 17; Temp 97.2(O); Pulse Ox 97% on R/A; pjf Vitals: 14:44 Log In time N/A- police car arrival. rs3 ED Course: 10:39 Patient visited by Jaime Kenney, Reg. lg 10:39 Patient moved to [facility] lg 10:47 Mary Burden,RN is Primary Nurse. aa3 10:47 Patient moved to [facility] aa3 10:48 Triage Initiated aa3 10:55 Demarco Broussard MD is Attending Physician. pc 11:00 Pt greeted and oriented to ED. Patient advised of names of staff involved in care, pjf location of call ponce, wait times and NPO status. Accompanied by Law Enforcement, [facility] (9.41), Patient has correct armband on for positive identification. Placed in psych safe attire. Bed in low position. Call light in reach. Side rails up X 1. Security observing. Property removed, secured in belongings bag- Placed in locker #3. Door closed. Noise minimized. Visitors limited. Report received from [facility] - psych. triage level #2, ams, confused, ah, cooperative \\T\\ this time. The patient / caregiver is instructed regarding the plan of care and ED course. Psych Safety Check: Location: Psych Room. 11:07 Patient visited by Demarco Broussard MD. pc 11:20 Patient visited by Buzz Steel PCA. mdr 12:04 Patient visited by Ferendzo, Navneet, Security Aide. pjf 12:10 Carey Simon,RN is Primary Nurse. rs3 12:13 [facility] Payment Agreement was scanned into [employer] and attached to record. mm15 12:42 Acetaminophen Level Sent. mdr 12:42 Basic Metabolic Profile Sent. mdr 12:42 Complete Blood Count Sent. mdr 12:42 Drug Eval Toxicology ED Only Sent. mdr 12:42 Ethyl Alcohol (ethanol) Sent. mdr 12:43 Patient visited by Carey Simon RN. rs3 12:43 Liver Profile Sent. mdr 12:43 Thyroid Stimulating Hormone Sent. mdr 12:43 Salicylate Level Sent. mdr 12:44 Patient visited by Navneet Chavez Security Aide. pjf 12:44 DEPAKOTE Sent. rs3 13:00 pt. safety checks completed at approx. 15 min. intervals from the time of arrival to [facility] the time of this entry. prior to rec. medication patient was agitated and required frequent redirection and constant observation. post medication pt. has remained calm and cooperative. 13:01 Patient visited by Navneet Chavez Security Aide. pjf 13:11 Patient visited by Navneet Chavez Security Aide. pjf 13:34 Patient visited by Navneet Chavez Security Aide. pjf 13:45 Psych Safety Check: Location: Psych Room. Visual Assessment: Cooperative. pjf 14:01 Patient visited by Navneet Chavez Security Aide. pjf 14:12 [facility] Legal paperwork was scanned into [employer] and attached to record. ml4 14:14 Patient visited by Navneet Chavez Security Aide. pjf 14:23 Mattie Harris is Hospitalizing Provider. pc 14:44 No IV's were initiated during this patient's visit. No procedures done that require rs3 assistance. Administered Medications: 11:18 Drug: Haloperidol 5 mg [haloperidol 5 mg tablet (1 tabs)] Route: PO; js13 11:18 Drug: LORazepam 2 mg [lorazepam 1 mg tablet (2 tabs)] Route: PO; js13 12:00 Drug: Benztropine 1 mg [benztropine 1 mg tablet (1 tabs)] Route: PO; 13 Attachments: 14:12 [facility] Legal paperwork ml4 Order Results: Lab Order: Acetaminophen Level; SPEC'M 04/16/16 12:40 Test: ACETAMINOPHEN LEVEL; Value: < 2.0; Range: 10.0-30.0; Abnormal: Below low normal; Units: UG/ML; Status: F Lab Order: Basic Metabolic Profile; [facility] 04/16/16 12:40 Test: GLUCOSE, FASTING; Value: 92; Range: 70-105; Units: MG/DL; Status: F Test: BLOOD UREA NITROGEN; Value: 7; Range: 7-18; Units: MG/DL; Status: F Test: CREATININE FOR GFR; Value: 0.93; Range: 0.70-1.30; Units: MG/DL; Status: F Test: GLOMERULAR FILTRATION RATE; Value: > 60.0; Range: >60; Status: F Test: SODIUM LEVEL; Value: 142; Range: 136-145; Units: MEQ/L; Status: F Test: POTASSIUM SERUM; Value: 3.9; Range: 3.5-5.1; Units: MEQ/L; Status: F Test: CHLORIDE LEVEL; Value: 105; Range: 98-107; Units: MEQ/L; Status: F Test: CARBON DIOXIDE LEVEL; Value: 28; Range: 21-32; Units: MEQ/L; Status: F Test: ANION GAP; Value: 9; Range: 8-16; Units: MEQ/L; Status: F Test: CALCIUM LEVEL; Value: 9.2; Range: 8.5-10.1; Units: MG/DL; Status: F Test Note: ; Units are mL/min/1.73 m2 Chronic Kidney Disease Staging per NKF: Stage I & II GFR >=60 Normal to Mildly Decreased Stage III GFR 30-59 Moderately Decreased Stage IV GFR 15-29 Severely Decreased Stage V GFR <15 Very Little GFR Left ESRD GFR <15 on SCIENTIFIC INFORMATICS LEADER Lab Order: Complete Blood Count; [facility] 04/16/16 12:40 Test: WHITE BLOOD COUNT; Value: 7.4; Range: 4.0-10.0; Units: K/mm3; Status: F Test: RED BLOOD COUNT; Value: 4.78; Range: 4.30-6.10; Units: M/mm3; Status: F Test: HEMOGLOBIN; Value: 14.7; Range: 14.0-18.0; Units: g/dl; Status: F Test: HEMATOCRIT; Value: 42.8; Range: 42.0-52.0; Units: %; Status: F Test: MEAN CORPUSCULAR VOLUME; Value: 89.5; Range: 80.0-96.0; Units: fl; Status: F Test: MEAN CORPUSCULAR HEMOGLOBIN; Value: 30.7; Range: 27.0-33.0; Units: pg; Status: F Test: MEAN CORPUSCULAR HGB CONC; Value: 34.3; Range: 32.0-36.5; Units: g/dl; Status: F Test: RED CELL DISTRIBUTION WIDTH; Value: 13.7; Range: 11.5-14.5; Units: %; Status: F Test: PLATELET COUNT, AUTOMATED; Value: 238; Range: 150-450; Units: k/mm3; Status: F Lab Order: Drug Eval Toxicology ED Only; SPEC'M 04/16/16 12:40 Test: AMPHETAMINES LEVEL URINE; Value: NEGATIVE; Range: NEGATIVE; Status: F Test: BARBITURATES URINE; Value: NEGATIVE; Range: NEGATIVE; Status: F Test: BENZODIAZEPINES URINE; Value: NEGATIVE; Range: NEGATIVE; Status: F Test: CANNABINOIDS URINE; Value: NEGATIVE; Range: NEGATIVE; Status: F Test: COCAINE METABOLITE URINE; Value: NEGATIVE; Range: NEGATIVE; Status: F Test: METHADONE URINE; Value: NEGATIVE; Range: NEGATIVE; Status: F Test: OPIATES URINE; Value: NEGATIVE; Range: NEGATIVE; Status: F Test: TRICYCLIC ANTIDEPRESS URINE; Value: NEGATIVE; Range: NEGATIVE; Status: F Test Note: ; ALL PRESUMPTIVE POSITIVE FINDINGS ARE UNCONFIRMED NORMAL VALUES THRESHOLD IN NG/ML AMPHETAMINES 1000 METHAMPHETAMINES 1000 BARBITURATES 300 BENZODIAZEPINES 300 CANNABINOIDS (THC) 50 COCAINE METABOLITE 300 METHADONE 300 OPIATES 300 PHENCYCLIDINE 25 TRICYCLIC ANTIDEPRESSANTS 1000 RESULTS ARE FOR MEDICAL PURPOSES ONLY. ALL URINE SPECIMENS WILL BE SAVED FOR 3 DAYS. IF CONFIRMATION OF A PRESUMPTIVE POSTIVE SCREEN RESULT IS DESIRED, CALL CHEMISTRY ([phone]) AND REQUEST URINE TO BE SENT TO REFERENCE LAB. FOR A LIST OF CLOSELY RELATED COMPOUNDS PLEASE CALL THE LAB. Lab Order: Ethyl Alcohol (ethanol); SPEC'M 04/16/16 12:40 Test: ETHYL ALCOHOL (ETHANOL); Value: < 0.003; Range: 0.000-0.010; Units: %; Status: F Lab Order: Liver Profile; [facility] 04/16/16 12:40 Test: AST/SGOT; Value: 37; Range: 15-37; Units: U/L; Status: F Test: ALT/SGPT; Value: 53; Range: 12-78; Units: U/L; Status: F Test: ALKALINE PHOSPHATASE; Value: 73; Range: 45-117; Units: U/L; Status: F Test: BILIRUBIN,TOTAL; Value: 0.4; Range: 0.2-1.0; Units: MG/DL; Status: F Test: BILIRUBIN,DIRECT; Value: 0.1; Range: 0.0-0.2; Units: MG/DL; Status: F Test: TOTAL PROTEIN; Value: 7.6; Range: 6.4-8.2; Units: GM/DL; Status: F Test: ALBUMIN; Value: 4.4; Range: 3.2-5.2; Units: GM/DL; Status: F Test: ALBUMIN/GLOBULIN RATIO; Value: 1.38; Range: 1.00-1.93; Status: F Lab Order: Salicylate Level; [facility] 04/16/16 12:40 Test: SALICYLATE LEVEL; Value: < 1.7; Range: 5.0-30.0; Abnormal: Below low normal; Units: MG/DL; Status: F Lab Order: Thyroid Stimulating Hormone; [facility] 04/16/16 12:40 Test: THYROID STIMULATING HORMONE; Value: 1.940; Range: 0.358-3.740; Units: uIU/ML; Status: F Lab Order: DEPAKOTE; [facility] 04/16/16 12:40 Test: VALPROIC ACID (DEPAKOTE); Value: < 3.0; Range: 50.0-100.0; Abnormal: Below low normal; Units: UG/ML; Status: F Outcome: 14:23 Decision to Hospitalize by Provider. 14:43 Discharge Assessment: patient administered narcotics - no. The following High Risk rs3 Discharge criteria are identified: None. [facility] by tech, via wheelchair, with chart. Condition: stable. No special radiology studies were completed. Admission hand-off: Report Faxed Fax receipt verified by unit staff. 14:45 Patient left the ED. rs3 Signatures: Demarco Broussard MD MD pc Ganter, LoriLee, Reilly Reg Navneet Godoy, AidMihaela Hughse,RN RN ck1 Rosanne Oquendo, PSA PSA ml4 Carey SimonRN RN rs3 Allyn Nath RN RN js13 Lc Wilkins mm15 Mary Burden RN RN aa3 Buzz Steel, VISION SPECIALIST VISION SPECIALIST mdr Chart Complete MTDD
[2016-04-18 18:00] VITALS: BP 157/90
[2016-04-18] MEDS: traZODone 100 MG TAB PO PRN (23:10)
[2016-04-19] MEDS: ACETAMINOPHEN TAB 650MG DOSE (2X325MG) PO PRN ×3 (03:18→16:35)
[2016-04-19 06:32] VITALS: BP 138/68
--- NOTE | 2016-04-19 07:02 | MHHPE ---
DATE OF ADMISSION: 04/16/2016 CURRENT MEDICATIONS: - Prozac 40 mg every morning with poor compliance CHIEF COMPLAINT: "I'm done and I need to contact Dr. Narayanan because his anti-suicidal word is uncle." HISTORY OF PRESENT ILLNESS: This is a 50-year-old white male, , living with his and his 12-year-old son and his 21-year-old daughter is home from college. The patient was seen in the emergency room yesterday and appeared to be psychotic. He was religiously preoccupied. His behavior was bizarre and inappropriate. He was undressing himself, leaving himself naked while urinating on the floor. He was making comments that were nonsensical such as "let's get the earth moving." According to the , the patient has been praying to God to kill him. He also believes that he had special baird or relationship with God. The patient has been feeling paranoid recently, especially about his . He feels that his is abusive and falsely claiming that he is crazy. He feels that she is turning the children against him. He describes her as having a bad temper and possibly has been cheating on him. The night prior to admission he was afraid to sleep in the bedroom with her. He was afraid that she might slit his throat while he was sleeping so he slept out on the couch. The patient has been smoking a lot of cannabis recently. He uses the cannabis for treatment of his Crohn's disease. He does report having financial stress. He is upset that his does not contribute to the family finances. Recently he states that his appetite is good. He has lost weight recently, at least 10 pounds. He is not sure exactly why. He states his concentration is poor. He does have sleep issues with racing thoughts. He denies recent depression. PAST PSYCHIATRIC HISTORY: The patient has a long psychiatric history dating back at least 20 years. He has worked with Dr. Narayanan for at least 15 years. The patient's case is reviewed with Dr. Narayanan who provides helpful information. The patient did have several episodes manic psychotic symptoms years ago while receiving steroids for his Crohn's disease. The patient responded quickly to Haldol at those periods of time. The patient has had multiple psychiatric hospitalizations here at [facility] over the decades, his last one being in November where he was treated with Prozac and Depakote. MEDICAL HISTORY: The patient has a history of kidney stones. ALLERGIES: 1. DILAUDID. LEGAL ISSUES: None noted. CHEMICAL DEPENDENCY: The patient does consume cannabis, which he claims helps his Crohn's disease. SOCIAL HISTORY: The patient was born in the [place] area. He was in the [employer] for 5 years and then moved here to the [facility]. Patient has been for 23 years and has two children. 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 He last worked in 2001. His father is disease. His mother is still living. Relationship with his mother, his brother and his sister are all good. The patient is disabled and 70% service connected with the [employer]. He also gets social security benefits. FAMILY PSYCH HISTORY: Patient denies. MENTAL STATUS EXAMINATION: The patient is alert and oriented. He is cooperative. He does have evidence of racing thoughts and some psychomotor restlessness. He stands up and sits down frequently and appears manic. No signs of depression. He does report paranoid ideations and beliefs with recent grandiose ideation. Insight and judgment appear limited. He denies hearing any voices. No signs of organicity. ASSESSMENT: The patient appears to have a manic/psychotic state at this time. The case has been reviewed with Dr. Narayanan who supports a trial on Abilify. The patient trusts Dr. Oracio patton and is willing to start such a trial. Side effect profile reviewed. DIAGNOSIS: 1. Bipolar disorder, manic, with psychotic features. 2. Cannabis use disorder. PROBLEM LIST: Substance abuse. Diann. Altered thoughts. PLAN: Trial on Abilify 5 mg twice a day. Dose will be increased as tolerated. 9.39 confirmed.
[2016-04-19] MEDS: POTASSIUM CHLORIDE 10 MEQ SR TABLET PO SCH ×2 (08:10→20:46)
[2016-04-19] MEDS: ACYCLOVIR 200 MG CAPSULE PO SCH (08:13)
[2016-04-19] MEDS: OMEPRAZOLE 20 MG CAP PO SCH (08:13)
[2016-04-19] MEDS: sulfaSALAzine 500 MG TABEC PO SCH ×4 (08:14→20:46)
[2016-04-19 18:00] VITALS: BP 154/83
[2016-04-19] MEDS: traZODone 100 MG TAB PO PRN (20:46)
[2016-04-20] MEDS: diphenhydrAMINE 25 MG CAP PO PRN (02:40)
[2016-04-20 06:00] VITALS: BP 130/72
[2016-04-20] MEDS: ACETAMINOPHEN TAB 650MG DOSE (2X325MG) PO PRN ×3 (06:33→21:29)
[2016-04-20] MEDS: OMEPRAZOLE 20 MG CAP PO SCH (08:07)
[2016-04-20] MEDS: sulfaSALAzine 500 MG TABEC PO SCH ×4 (08:08→20:14)
[2016-04-20] MEDS: ACYCLOVIR 200 MG CAPSULE PO SCH (08:08)
[2016-04-20] MEDS: POTASSIUM CHLORIDE 10 MEQ SR TABLET PO SCH ×2 (08:09→20:12)
[2016-04-20] MEDS: MERCAPTOPURINE 50 MG PO SCH ×2 (09:00→21:00)
[2016-04-20 18:00] VITALS: BP 128/67
[2016-04-21] MEDS: traZODone 100 MG TAB PO PRN (00:24)
[2016-04-21] MEDS: LORazepam 1 MG TAB PO PRN ×2 (04:17→18:42)
[2016-04-21] MEDS: diphenhydrAMINE 25 MG CAP PO PRN (04:17)
[2016-04-21 07:13] VITALS: BP 143/73
[2016-04-21] MEDS: POTASSIUM CHLORIDE 10 MEQ SR TABLET PO SCH (08:22)
[2016-04-21] MEDS: OMEPRAZOLE 20 MG CAP PO SCH (08:28)
[2016-04-21] MEDS: sulfaSALAzine 500 MG TABEC PO SCH ×4 (08:29→21:58)
[2016-04-21] MEDS: ACYCLOVIR 200 MG CAPSULE PO SCH (08:29)
[2016-04-21] MEDS: MERCAPTOPURINE 50 MG PO SCH ×2 (09:00→21:00)
[2016-04-21] MEDS: ACETAMINOPHEN TAB 650MG DOSE (2X325MG) PO PRN ×2 (10:37→18:08)
[2016-04-21] MEDS: POTASSIUM CHLORIDE 10% LIQ 20 MEQ/15 ML UDC PO SCH (11:59)
[2016-04-21] MEDS ORDERED: traZODone 50 MG TAB PO PRN (13:00)
[2016-04-21 18:00] VITALS: BP 130/63
[2016-04-21] MEDS: HALOPERIDOL 5 MG TAB PO PRN (18:06)
--- NOTE | 2016-04-22 00:06 | IPN ---
DATE: 04/18/2016 VITAL SIGNS: Temperature 98.3, pulse 86, respiratory rate 16, blood pressure 141/68. CURRENT MEDICATIONS: - Abilify 5 mg twice a day - Ativan 2 mg as needed - Benadryl as needed - trazodone 50 mg as needed HISTORY OF PRESENT ILLNESS: The patient states he is doing well. However, he states he cannot relax. At night, he falls asleep and the trazodone is not helping him stay asleep along enough. He states his sleep is a problem. He requested an increase of his trazodone or some other measure to help with his sleep. He states he slept well the last time he was in the hospital earlier this year. He was trazodone 50 mg and Zyprexa 10 mg and Depakote at night. MENTAL STATUS EXAMINATION: 50-year-old -[place] male, average height, average build, pleasant, calm, cooperative, dysphoric, anxious. Affect: Restricted. Mood: Congruent. Thought form: Logical, coherent, goal directed, organized. Thought content: Denies suicidal ideation (SI), homicidal ideation (HI). Perception: Denies auditory or visual hallucinations. Insight and judgment: Poor. Impulse control: Poor. ASSESSMENT: 50-year-old -[place] male hospitalized for psychosis. PLAN: Increase trazodone at bedtime to 100 mg. Monitor response to medication change.
[2016-04-22] MEDS: diphenhydrAMINE 25 MG CAP PO PRN ×2 (03:39→19:10)
--- NOTE | 2016-04-22 06:13 | IPN ---
DATE: 04/19/2016 VITAL SIGNS: Temperature 95.8, pulse 79, respiratory rate 16, blood pressure 138/68. CURRENT MEDICATION: - trazodone as needed - Abilify 5 mg twice a day - Ativan as needed HISTORY OF PRESENTING ILLNESS: Patient states he slept better last night with 100 mg of trazodone at night with no side effects this morning. He states his other medications are going well and he is starting to feel better, but still states he is not fully there yet with psychotic symptoms. MENTAL STATUS EXAMINATION: 50-year-old [place]er male, average height, average build, pleasant, calm, cooperative. Mood is dysphoric, anxious. Affect restricted. Mood congruent. Thought form logical, coherent and goal directed, organized. Thought content: Denies suicidal ideation (SI), homicidal ideation (HI), delusions. Perception: Denies auditory or visual hallucinations. Insight and judgment fair. Impulse control fair. PLAN: Monitor response to recent medication changes.
[2016-04-22 06:32] VITALS: BP 145/68
[2016-04-22 07:20] LABS: ANION GAP 9 MEQ/L (8-16); BLOOD UREA NITROGEN 11 MG/DL (7-18); CARBON DIOXIDE LEVEL 27 MEQ/L (21-32); CHLORIDE LEVEL 103 MEQ/L (98-107); CREATININE FOR GFR 0.94 MG/DL (0.70-1.30); GLOMERULAR FILTRATION RATE > 60.0 (>60); GLUCOSE, FASTING 84 MG/DL (70-105); POTASSIUM SERUM 4.1 MEQ/L (3.5-5.1); SODIUM LEVEL 139 MEQ/L (136-145)
[2016-04-22] MEDS: OMEPRAZOLE 20 MG CAP PO SCH (08:30)
[2016-04-22] MEDS: MERCAPTOPURINE 50 MG PO SCH ×2 (08:30→21:44)
[2016-04-22] MEDS: POTASSIUM CHLORIDE 10% LIQ 20 MEQ/15 ML UDC PO SCH (08:30)
[2016-04-22] MEDS: ACYCLOVIR 200 MG CAPSULE PO SCH (08:31)
[2016-04-22] MEDS: sulfaSALAzine 500 MG TABEC PO SCH ×4 (08:31→21:44)
[2016-04-22] MEDS: ACETAMINOPHEN TAB 650MG DOSE (2X325MG) PO PRN ×2 (09:11→15:45)
--- NOTE | 2016-04-22 10:13 | IPN ---
DATE OF SERVICE: 04/20/2016 VITAL SIGNS: Temperature 96.1, pulse 91, respiratory rate 18, blood pressure 130/72. CURRENT MEDICATION: - trazodone as needed - Excedrin - omeprazole - sulfasalazine - acyclovir - potassium - Abilify 5 mg twice a day - Ativan as needed - Benadryl as needed HISTORY OF PRESENTING ILLNESS: The patient was seen, and also present was Yesica Osorio, a nurse on the unit. The patient states he is doing well. He is sleeping well. He is not having any side effects. He states he likes the Abilify very much. It was started while he was on the inpatient unit here. He states he has an appointment with Dr. Narayanan as an outpatient, and he states he wants to see him and see if Dr. Narayanan will keep him on it. He states the Abilify keeps him leveled out, where the prozac in the past never did. The patient denies suicidal ideation, denies homicidal ideation, denies thoughts to hurt self or others. MENTAL STATUS EXAMINATION: A 50-year-old -Cub[place] male, average height, average build, pleasant, calm, cooperative. Euthymic mood. Affect full range, reactive. Mood congruent. Thought form logical, coherent, goal directed, organized. Thought content: Denies suicidal ideation (SI), homicidal ideation (HI), delusions. Perception: Denies auditory or visual hallucinations. Insight and judgment fair. Impulse control fair. ASSESSMENT AND PLAN: A 50 -year-old -Cuban male, doing well with trazodone with sleep and Abilify. Continue current medication. Continue to monitor response to recent therapeutic changes.
--- NOTE | 2016-04-22 13:09 | IPN ---
DATE: 04/21/2016 VITAL SIGNS: Temperature 96.4, pulse 71, respirations 20, blood pressure 143/73. CURRENT MEDICATIONS: - Abilify 5 mg twice a day - trazodone 100 mg at bedtime as needed PAST PSYCHIATRIC HISTORY: Patient states he had a good weekend despite being here over the holiday. He missed the children, but otherwise he feels his mood is more stable. He likes the Abilify. He is happy to be without the highs and the lows. He feels more even. His appetite is good. He is sleeping better. He does have chronic insomnia. He would like the trazodone dose increased. Patient was having some delusional beliefs about yazidi and the devil prior to admission. He is not voicing such here today. He was also reporting paranoid conspiracies about his . He also is taking distance from those delusional beliefs here today. His did visit over the weekend and was supportive. Racing thoughts have improved. MENTAL STATUS EXAMINATION: Patient is alert and oriented. He is cooperative. Racing thoughts improved. He is definitely calmer. Diann appears to be resolving. He is no longer showing signs of psychomotor agitation. He is not depressed or suicidal. Paranoia is much less prominent. Latter Day delusional beliefs also resolving. Insight and judgment appear improved. He denies hearing any voices. DIAGNOSES: 1. Bipolar disorder, manic with psychotic features, improved. 2. Cannabis use disorder. PLAN: Continue current psychotropics. Increase trazodone to 150 mg at bedtime as needed. Patient reassured that the trazodone is not addicting.
[2016-04-22] MEDS: HALOPERIDOL 5 MG TAB PO PRN (17:54)
[2016-04-22 18:00] VITALS: BP 117/61
[2016-04-22] MEDS: traZODone 100 MG TAB PO PRN (22:48)
[2016-04-22] MEDS: LORazepam 1 MG TAB PO PRN (22:50)
[2016-04-23 06:17] VITALS: BP 128/62
[2016-04-23] MEDS: ACETAMINOPHEN TAB 650MG DOSE (2X325MG) PO PRN (06:45)
[2016-04-23] MEDS: MERCAPTOPURINE 50 MG PO SCH ×2 (09:10→21:24)
[2016-04-23] MEDS: sulfaSALAzine 500 MG TABEC PO SCH ×4 (09:10→21:24)
[2016-04-23] MEDS: OMEPRAZOLE 20 MG CAP PO SCH (09:10)
[2016-04-23] MEDS: ACYCLOVIR 200 MG CAPSULE PO SCH (09:10)
[2016-04-23] MEDS: POTASSIUM CHLORIDE 10% LIQ 20 MEQ/15 ML UDC PO SCH (09:11)
[2016-04-23] MEDS: LOPERAMIDE 2 MG CAP PO PRN ×2 (10:09→14:27)
[2016-04-23] MEDS: HALOPERIDOL 5 MG TAB PO PRN ×2 (10:28→17:17)
--- NOTE | 2016-04-23 13:32 | IPN ---
DATE: 04/22/2016 VITAL SIGNS: Temperature 96.3, pulse 87, respirations 16, blood pressure 145/68. CURRENT MEDICATION: - Abilify 5 mg twice a day - trazodone 150 mg at bedtime PSYCH HISTORY: The patient requests Excedrin instead of Tylenol. He also asked about cortisone cream for his bottom and also for Imodium. This will be requested from the physician licensed sales assistant. The patient's did come in during visiting hours. They did have an argument so there is still some evidence of marital conflict. The patient wants marital therapy. He claims his always backs out at the last minute. The patient had been voicing some paranoid thoughts about his . He was afraid that she might try to kill him or even slit his throat while he was sleeping. He is backing off these paranoid beliefs. He reports that she is not a violent person. He states his depression is better and not as severe. His appetite is good. He feels more stable. He feels that the 150 mg dose of trazodone is too strong. MENTAL STATUS EXAM: Patient is alert and oriented and cooperative. Racing thoughts are mild. Speech is less pressured. Paranoia is reduced. No pathological jealousy noted. Insight and judgment are somewhat improved. He is not hearing any voices. Depression is minimal. DIAGNOSES: Bipolar disorder, manic, with psychotic features. Cannabis use disorder. PLAN: Continue Abilify. Reduce trazodone back to 100 mg at bedtime. Consult with family regarding his baseline.
[2016-04-23] MEDS: diphenhydrAMINE 25 MG CAP PO PRN (17:17)
[2016-04-23 18:00] VITALS: BP 107/70
[2016-04-23] MEDS ORDERED: ARIPiprazole 10 MG TAB PO SCH (21:00)
[2016-04-23] MEDS: traZODone 100 MG TAB PO PRN (23:00)
[2016-04-23] MEDS: LORazepam 1 MG TAB PO PRN (23:00)
[2016-04-24 06:00] VITALS: BP 117/68
[2016-04-24] MEDS: MERCAPTOPURINE 50 MG PO SCH ×2 (08:19→21:20)
[2016-04-24] MEDS: OMEPRAZOLE 20 MG CAP PO SCH (08:19)
[2016-04-24] MEDS: POTASSIUM CHLORIDE 10% LIQ 20 MEQ/15 ML UDC PO SCH (08:19)
[2016-04-24] MEDS: ACYCLOVIR 200 MG CAPSULE PO SCH (08:19)
[2016-04-24] MEDS: sulfaSALAzine 500 MG TABEC PO SCH ×4 (08:20→21:20)
[2016-04-24] MEDS: HALOPERIDOL 5 MG TAB PO PRN ×2 (10:09→18:01)
[2016-04-24] MEDS: diphenhydrAMINE 25 MG CAP PO PRN ×2 (12:03→18:50)
--- NOTE | 2016-04-24 14:02 | IPN ---
DATE: 04/23/2016 VITAL SIGNS: Temperature 95.0, pulse 94, respirations 16, blood pressure 128/62. CURRENT MEDICATIONS: - Abilify 5 mg twice a day - trazodone 100 mg at night PSYCHIATRIC HISTORY: The patient is thankful for getting his shoes and for getting the other prescriptions that he asked for yesterday. He states that his mood is gradually improving. His appetite is good. He sleeps well at night. He is still somewhat paranoid about the , however. He had another argument with his over the telephone. Staff have not been able to get a hold of the so far to get further family input. This will be pursued. We discussed increasing the Abilify. He feels comfortable with this. He is happy with the lower dose of trazodone. MENTAL STATUS EXAMINATION: The patient is alert and oriented. He is cooperative. Racing thoughts are mild. Speech is more appropriate and less pressured. He still reports some paranoia, as mentioned above. He is not hearing voices. Insight and judgment appear fair. No current signs of depression. DIAGNOSIS: Bipolar disorder, manic with recent psychosis. PLAN: Change Abilify to nighttime dosage. Staff to get family input.
[2016-04-24] MEDS: LOPERAMIDE 2 MG CAP PO PRN (14:16)
[2016-04-24 18:00] VITALS: BP 123/70
[2016-04-24] MEDS: LORazepam 1 MG TAB PO PRN (22:51)
[2016-04-24] MEDS: traZODone 100 MG TAB PO PRN (22:52)
[2016-04-25 06:35] VITALS: BP 136/72
[2016-04-25] MEDS: OMEPRAZOLE 20 MG CAP PO SCH (08:21)
[2016-04-25] MEDS: sulfaSALAzine 500 MG TABEC PO SCH ×4 (08:21→20:19)
[2016-04-25] MEDS: FLUTICASONE PROP 0.05% NASAL SPRAY 16 GM (FLONASE) SCH (08:21)
[2016-04-25] MEDS: POTASSIUM CHLORIDE 10% LIQ 20 MEQ/15 ML UDC PO SCH (08:21)
[2016-04-25] MEDS: MERCAPTOPURINE 50 MG PO SCH ×2 (08:21→20:20)
[2016-04-25] MEDS: ACYCLOVIR 200 MG CAPSULE PO SCH (08:21)
[2016-04-25] MEDS: LOPERAMIDE 2 MG CAP PO PRN (10:26)
[2016-04-25] MEDS: HYDROCORTISONE 1% OINTMENT 30GM TOP PRN ×2 (10:27→22:30)
[2016-04-25] MEDS: ACETAMINOPHEN TAB 650MG DOSE (2X325MG) PO PRN (11:55)
[2016-04-25] MEDS: HALOPERIDOL 5 MG TAB PO PRN (11:55)
[2016-04-25] MEDS: diphenhydrAMINE 25 MG CAP PO PRN (15:50)
[2016-04-25 18:00] VITALS: BP 117/61
[2016-04-25] MEDS: LORazepam 1 MG TAB PO PRN (18:02)
[2016-04-25] MEDS: traZODone 100 MG TAB PO PRN (22:58)
[2016-04-25] MEDS: LORazepam 2 MG TAB PO PRN (22:58)
[2016-04-26 06:19] VITALS: BP 116/67
[2016-04-26] MEDS: FLUTICASONE PROP 0.05% NASAL SPRAY 16 GM (FLONASE) SCH (08:07)
[2016-04-26] MEDS: MERCAPTOPURINE 50 MG PO SCH ×2 (08:07→20:03)
[2016-04-26] MEDS: ACYCLOVIR 200 MG CAPSULE PO SCH (08:08)
[2016-04-26] MEDS: OMEPRAZOLE 20 MG CAP PO SCH (08:08)
[2016-04-26] MEDS: sulfaSALAzine 500 MG TABEC PO SCH ×4 (08:08→20:06)
[2016-04-26] MEDS: POTASSIUM CHLORIDE 10% LIQ 20 MEQ/15 ML UDC PO SCH (08:08)
[2016-04-26] MEDS: HALOPERIDOL 5 MG TAB PO PRN (09:36)
[2016-04-26] MEDS: diphenhydrAMINE 50 MG CAP PO PRN (11:50)
[2016-04-26] MEDS: LORazepam 2 MG TAB PO PRN (12:15)
--- NOTE | 2016-04-26 12:28 | IPN ---
DATE: 04/24/2016 VITAL SIGNS: Temperature 95.6, pulse 78, respirations 18, blood pressure 117/68. CURRENT MEDICATIONS: - Abilify 10 mg nightly - trazodone 100 mg nightly PSYCHIATRIC HISTORY: The patient is irritable today. He is upset with his . He reports that she is claiming that he is "nuts" and "crazy." His has spoken to staff about his paranoia and that he is not at baseline yet. We discussed increasing his Abilify. He feels comfortable with this. The Abilify has been switched to one time a day dose at bedtime. His appetite is good. He no longer reports that he is worried that she will try to kill him, but does report paranoid concerns about her. MENTAL STATUS EXAMINATION: The patient is alert and oriented, he is irritable today, racing thoughts continue, paranoia is still present but the patient denies hearing voices. Insight and judgment appear fair. DIAGNOSIS: Bipolar disorder, manic with recent psychosis. PLAN: Increase Abilify 15 mg nightly.
[2016-04-26 18:00] VITALS: BP 121/60
[2016-04-26] MEDS: LOPERAMIDE 2 MG CAP PO PRN (22:23)
[2016-04-26] MEDS: traZODone 100 MG TAB PO PRN (23:17)
[2016-04-27 06:00] VITALS: BP 116/56
[2016-04-27] MEDS: MERCAPTOPURINE 50 MG PO SCH ×2 (08:23→20:57)
[2016-04-27] MEDS: FLUTICASONE PROP 0.05% NASAL SPRAY 16 GM (FLONASE) SCH (08:24)
[2016-04-27] MEDS: ACYCLOVIR 200 MG CAPSULE PO SCH (08:27)
[2016-04-27] MEDS: sulfaSALAzine 500 MG TABEC PO SCH ×4 (08:27→20:55)
[2016-04-27] MEDS: OMEPRAZOLE 20 MG CAP PO SCH (08:27)
[2016-04-27] MEDS: POTASSIUM CHLORIDE 10% LIQ 20 MEQ/15 ML UDC PO SCH (08:28)
[2016-04-27] MEDS: ACETAMINOPHEN TAB 650MG DOSE (2X325MG) PO PRN (08:28)
[2016-04-27] MEDS: HALOPERIDOL 5 MG TAB PO PRN (11:23)
[2016-04-27] MEDS: diphenhydrAMINE 50 MG CAP PO PRN ×2 (11:23→22:53)
[2016-04-27] MEDS: LORazepam 2 MG TAB PO PRN ×2 (16:37→22:53)
[2016-04-27 18:00] VITALS: BP 115/57
[2016-04-27] MEDS: HYDROCORTISONE 1% OINTMENT 30GM TOP PRN (20:55)
[2016-04-27] MEDS ORDERED: ARIPiprazole 10 MG TAB PO SCH (21:00)
[2016-04-27] MEDS: traZODone 100 MG TAB PO PRN (22:53)
[2016-04-27] MEDS: LOPERAMIDE 2 MG CAP PO PRN (22:53)
[2016-04-28] MEDS: HALOPERIDOL 5 MG TAB PO PRN ×3 (01:46→22:01)
[2016-04-28] MEDS: LORazepam 2 MG TAB PO PRN ×2 (05:53→18:20)
[2016-04-28 06:10] VITALS: BP 147/64
[2016-04-28] MEDS: FLUTICASONE PROP 0.05% NASAL SPRAY 16 GM (FLONASE) SCH (08:13)
[2016-04-28] MEDS: sulfaSALAzine 500 MG TABEC PO SCH ×4 (08:13→20:34)
[2016-04-28] MEDS: POTASSIUM CHLORIDE 10% LIQ 20 MEQ/15 ML UDC PO SCH (08:13)
[2016-04-28] MEDS: OMEPRAZOLE 20 MG CAP PO SCH (08:13)
[2016-04-28] MEDS: MERCAPTOPURINE 50 MG PO SCH ×2 (08:14→20:34)
[2016-04-28] MEDS: ACYCLOVIR 200 MG CAPSULE PO SCH (08:15)
--- NOTE | 2016-04-28 08:55 | IPN ---
DATE OF SERVICE: 04/27/2016 VITAL SIGNS: Temperature 94.6, pulse 76, respiration 19, blood pressure 116/56. CURRENT MEDICATIONS: - Abilify 15 mg nightly - Benadryl 50 mg every 6 hours as needed - Ativan 2 mg every 6 hours as needed - trazodone 100 mg nightly as needed PSYCHIATRIC HISTORY: The patient is upset that his Ativan as needed prescription had been cut back, however, the electronic medical record (EMR) is checked, and no such reduction has been made. However, it is recommended that he use the Ativan as rarely as possible. The patient again hopes to be discharged from the hospital soon. He has had multiple long hospital stays due to his Crohn disease and has lots of bad memories of hospitals. He claims to like cannabis. He is trying to get on medical marijuana program from his hoop cutter. The patient warned that cannabis can aggravate paranoia. We discussed increasing his Abilify. He does still report having some anxiety symptoms. He feels the Abilify has helped with this anxiety, so he is going to do so. His is visiting on a frequent basis and has decided to join marital counseling with him, which he is happy with. MENTAL STATUS EXAMINATION: The patient is alert and oriented and cooperative. The patient still reports high levels of anxiety with some racing thoughts. Paranoia seems less prominent. He denies hearing voices. Insight and judgment appear fair. DIAGNOSIS: Bipolar disorder, manic, with paranoia. PLAN: Increase Abilify to 20 mg nightly as tolerated.
--- NOTE | 2016-04-28 14:29 | IPN ---
DATE: 04/28/2016 VITAL SIGNS: Temperature 96.7, pulse 79, respiration 18, blood pressure 147/64. CURRENT MEDICATIONS: - Abilify discontinued. - trazodone mg nightly as needed. - Ativan 2 mg every 6 hours as needed. PSYCH HISTORY: The patient appeared to develop some acuesthesia, possibly yesterday afternoon and evening. His Abilify was held subsequently. His case was then reviewed this morning with Dr. Narayanan, his outpatient psychiatrist. Various option were considered. The patient even had thoughts about being transferred to the [facility] in [place], but later changed his mind. The patient could be placed on either Inderal or Cogentin for his acuesthesia, but prefers a lower dose of Abilify. This appears reasonable. He also likes the Haldol. He has used Haldol in the past for bipolar manic episodes while on prednisone. Dr. Narayanan does want him to followup with the chemical dependency program. The patient, himself, is quite focused on medical marijuana for his Crohn's disease. MENTAL STATUS EXAMINATION: The patient is alert, oriented and cooperative. He appears calmer but states he had increase in anxiety since being on the Abilify. He denies feeling depressed. He is not manic. He is not voicing any psychotic symptoms. No overt paranoid thoughts about the , for example. No homicidal or suicidal thoughts. Insight and judgment appear reasonably good. DIAGNOSIS: Bipolar with recent marina and paranoia. PLAN: Restart Abilify at a lower dose of 5 mg twice a day on a trial basis.
[2016-04-28] MEDS: LOPERAMIDE 2 MG CAP PO PRN (14:43)
[2016-04-28] MEDS: diphenhydrAMINE 50 MG CAP PO PRN ×2 (14:43→22:01)
[2016-04-28] MEDS: HYDROCORTISONE 1% OINTMENT 30GM TOP PRN (16:39)
[2016-04-28 18:00] VITALS: BP 119/60
[2016-04-28] MEDS: traZODone 100 MG TAB PO PRN (22:01)
[2016-04-29 06:32] VITALS: BP 134/61
[2016-04-29] MEDS ORDERED: ARIP10TAB PO (08:10)
[2016-04-29] MEDS ORDERED: HALO5TA PO (08:10)
[2016-04-29] MEDS ORDERED: TRAZ150T14 PO (08:10)
[2016-04-29] MEDS: OMEPRAZOLE 20 MG CAP PO SCH (08:28)
[2016-04-29] MEDS: sulfaSALAzine 500 MG TABEC PO SCH (08:28)
[2016-04-29] MEDS: POTASSIUM CHLORIDE 10% LIQ 20 MEQ/15 ML UDC PO SCH (08:29)
[2016-04-29] MEDS: FLUTICASONE PROP 0.05% NASAL SPRAY 16 GM (FLONASE) SCH (08:29)
[2016-04-29] MEDS: MERCAPTOPURINE 50 MG PO SCH (08:29)
[2016-04-29] MEDS: EXCEDRIN MIGRAINE TABLET PO PRN (08:56)
[2016-04-29] MEDS ORDERED: HYDR1OIN TOP (09:09)
[2016-04-29] MEDS ORDERED: EXCETAB80 PO (09:09)
[2016-04-29] MEDS ORDERED: LOPE2CA PO (09:09)
--- NOTE | 2016-04-29 10:09 | MHDS ---
DATE OF ADMISSION: 04/16/2016 DATE OF DISCHARGE: Vital signs: Temperature 95.8, pulse 76, respirations 20, blood pressure 134/ 61. LABS: CBC and differential within normal limits. Chem survey within normal limits. Toxicology negative. DISCHARGE DIAGNOSIS: Bipolar manic with psychotic features. Cannabis use disorder. DISCHARGE MEDICATIONS: - Abilify 10 mg daily as directed. Patient may take half tablet twice daily if he so wishes. - trazodone 150 mg at bedtime as needed - Haldol 5 mg one by mouth twice daily as needed CHIEF COMPLAINT: "I'm done and I need to contact Dr. Narayanan because his anti-suicidal word is uncle". HISTORY OF PRESENT ILLNESS: This is a 50-year-old white male, , living with his and two children. Patient was seen in the emergency room and appeared to be quite psychotic. He was religiously preoccupied. His behavior was bizarre and inappropriate. He was undressing himself leaving himself naked and urinating on the floor. He was making frequent comments that were non-sensical such as "let's get the earth moving". According to the , the patient has been praying to God to kill him. He believes he has special baird or relationship with God. Patient has also been feeling paranoid recently especially about his . He believes that his is abusive and falsely claiming that he is crazy. He feels that she is turning the children against him. He is afraid to sleep in the same bedroom with her. He is afraid that she might slit his throat while he is sleeping so patient was sleeping out on the couch. Patient has been smoking a lot of cannabis recently. He uses it for treatment of his Crohn's disease. However, surprisingly, his urine toxicology screen is negative for cannabinoids. He also reports having financial stress. He does have insomnia with racing thoughts. Patient has a long psychiatric history dating back at least 20 years. He has worked with Dr. Narayanan for at least 15 years. He does have a history of previous psychotic symptoms in the past while receiving steroids for his Crohn's disease. Patient had multiple psychiatric hospitalizations here at [facility] over the decades, the last one being in November where he was treated with Prozac and Depakote. PROGRESS ON THE UNIT: Dr. Narayanan was consulted regarding his treatment plan and recommended a trial on Abilify. Patient's dose was increased gradually. Patient's psychosis quickly resolved. His manic symptoms gradually resolved. Racing thoughts improved gradually. His behavior became more appropriate on the unit. Patient stated to attend groups and programs in the milieu therapy and found it helpful. Patient's visited frequently and was quite supportive. Patient did develop some akasthisia on the higher dose of Abilify so the dose was lowered. Patient did find the as needed Ativan and the as needed Haldol quite helpful. Patient appeared to have reached maximal hospital benefit as all psychosis had resolved and manic symptoms appeared in remission as well. Patient , however, was still quite fixated on medical marijuana. Dr. Narayanan does want him referred for a chemical dependency evaluation which he is willing to do. MENTAL STATUS EXAMINATION: At time of discharge, mood and affect appeared quite good. Anxiety was minimal. No signs of racing thoughts or marina. Patient was not depressed. He was not homicidal or suicidal. No signs of psychosis. Paranoia was minimal. No signs of grandiosity. He was not religiously preoccupied. Not hearing voices. No signs of thought disorder. Grooming and hygiene was quite good. ASSESSMENT: Patient has had good response to Abilify. He did developed some akasthisia on higher doses, however. PLAN: Discharge today to followup with his psychiatrist and also a referral for chemical dependency evaluation. [facility]
[2016-04-29] MEDS: LORazepam 2 MG TAB PO PRN (10:29)
== END 2016-04-29 11:40 | disposition home or self-care (01) | DRG 885 ==
LOC: M ED 10:38 → M PSY 14:57
PROVIDERS: ADMIT Psychiatry & Neurology Psychiatry; ATTEND Psychiatry & Neurology Psychiatry
DX: F31.2 Bipolar disorder, current episode manic severe with psychotic features (principal); B02.29 Other postherpetic nervous system involvement; K50.90 Crohn's disease, unspecified, without complications; F12.90 Cannabis use, unspecified, uncomplicated; F17.210 Nicotine dependence, cigarettes, uncomplicated; K21.9 Gastro-esophageal reflux disease without esophagitis; N40.0 Benign prostatic hyperplasia without lower urinary tract symptoms; Z79.899 Other long term (current) drug therapy; Z88.8 Allergy status to other drugs, medicaments and biological substances; M81.0 Age-related osteoporosis without current pathological fracture

== ENCOUNTER → 2016-05-01 | Outpatient (CLI) | payer MEDICARE, OTHER ==
[~2016-05-01] MED LIST changes: +ACYC800T PO; +ARIP10TAB PO; +HALO5TA PO; +HYDR1OIN TOP; +HYDR1TAB97 PO; +LOPE2CA PO; +TRAZ150T14 PO; +XANA0.25 PO
== END ==
LOC: M OUTALCOH 09:48
PROVIDERS: ATTEND Psychiatry & Neurology Psychiatry
DX: Z13.9 Encounter for screening, unspecified (principal); F12.20 Cannabis dependence, uncomplicated

== ENCOUNTER → 2016-05-19 | Outpatient (CLI) | payer MEDICARE, OTHER ==
[~2016-05-19] MED LIST changes: +HYDR-3713 PO; -HYDR1TAB97 PO; -IMOD2TAB14 PO; +IMOD2TAB16 PO; +POTA10SO11 PO; -POTA20EL PO; +TAMSULOSIN 0.4 MG CAP As Ordered ONE
--- NOTE | 2016-06-12 02:05 | ECWPNPC ---
PATIENT NAME: GUILLERMO LEI : 1965 GENDER: MALE VISIT DATE: 05/19/2016 DISCHARGE DATE: 05/19/16 1224 VISIT LOCKED DATE TIME: PHYSICIAN: VADIM CHENG RESOURCE: VADIM CHENG REASON FOR APPOINTMENT 1. HEAD HISTORY OF PRESENT ILLNESS HISTORY OF PRESENT ILLNESS: PAIN THE PATIENT DESCRIBES THE PAIN... FALL RISK SCREENING: SCREENING :NO FALLS IN THE PAST YEAR TODAY'S VISIT: NOTES: RATES PAIN TODAY 0/10 OVER HEAD FACE OR RIGHT EAR. HAS HAD SOME CROHN'S ABDOMENAL DISCOMFORT AND HAS USED SOME VICODAN FOR THIS. . CURRENT MEDICATIONS TAKING ALENDRONATE SODIUM 70 MG TABLET 1 TABLET ORALLY WEEK TAKING LOMOTIL 2.5-0.025 MG TABLET 1 TABLET NEEDED ORALLY FOUR TIMES A DAY TAKING IMODIUM A-D 2 MG TABLET 1 TABLET ORALLY 8 TIME(S) A DAY NEEDED TAKING MERCAPTOPURINE 50 MG TABLET 1 AND 1/2 TABS ORALLY DAILY TAKING SULFAZINE 500 MG TABLET 1 TABLET ORALLY 6 TABS DAILY TAKING OMEPRAZOLE 20 MG CAPSULE DELAYED RELEASE 1 CAPSULE ORALLY ONCE A DAY TAKING VITAMIN D3 27267 UNIT CAPSULE ORALLY 2X WEEKLY TAKING VITAMIN B12 1000 UNITS INJECTION SUBCUTANEOUSLY MONTHLY TAKING LIDOCAINE 5 % OINTMENT 1 APPLICATION TO AFFECTED AREA NEEDED EXTERNALLY THREE TIMES A DAY TAKING TAMSULOSIN HCL 0.4 MG CAPSULE 1 CAPSULE 30 MINUTES AFTER THE SAME MEAL EACH DAY ORALLY ONCE A DAY TAKING OXYCODONE-ACETAMINOPHEN 5-325 MG TABLET 1 TABLET ORALLY EVERY 6 HOURS NEEDED FOR PAIN (MDD 4) TAKING POTASSIUM CHLORIDE 40 MEQ/15ML (20%) SOLUTION 1 1/2 TBLS ORALLY DAILY TAKING ABILIFY 10 MG TABLET 1/2 TABLET ORALLY BID TAKING LORAZEPAM 0.5 MG TABLET 1 TABLET NEEDED ORALLY BID TAKING POTASSIUM CITRATE ER 15 MEQ (1620 MG) TABLET EXTENDED RELEASE 1 TABLET WITH MEALS ORALLY TWICE A DAY DISCONTINUED PROZAC 40 MG CAPSULE 1 CAPSULE IN THE MORNING ORALLY ONCE A DAY DISCONTINUED ONDANSETRON 4 MG TABLET DISPERSIBLE 1 TABLET ON THE TONGUE AND ALLOW TO DISSOLVE ORALLY EVERY 8 HRS DISCONTINUED POTASSIUM 0 TABLET 1 TABLET ORALLY ONCE DAILY DISCONTINUED ACYCLOVIR 800 MG TABLET 1 TABLET ORALLY ONCE DAILY DISCONTINUED KETOROLAC TROMETHAMINE 10 MG TABLET 1 TABLET ORALLY EVERY 6 HRS NEEDED FOR PAIN DISCONTINUED OXYBUTYNIN CHLORIDE 5 MG TABLET 1 TABLET ORALLY EVERY 8 HOUS NEEDED FOR URINARY FREQUENCY/BLADDER SPASMS DISCONTINUED LIDOCAINE HCL JELLY LONG TERM 2 % JELLY 1 APPLICATION TO AFFECTED AREA NEEDED INTRAVESICALLY PRIOR TO CYSTOSCOPY IN OFFICE DISCONTINUED BACTRIM DS 800-160 TABLET 1 TABLET FOR YOUR CYSTOSCOPY TODAY ORALLY ONCE DISCONTINUED POTASSIUM & MAGNESIUM ASPARTAT 250-250 MG CAPSULE 1 CAPSULE WITH A MEAL ORALLY ONCE A DAY MEDICATION LIST REVIEWED AND RECONCILED WITH THE PATIENT PAST MEDICAL HISTORY CROHNS DISEASE SHINGLES KIDNEY STONES ALLERGIES DILAUDID: NAUSEA/VOMITING, RASH, ITCHING: ALLERGY GABAPENTIN: MOOD SWINGS, BOWEL SYMPTOMS: ALLERGY SOCIAL HISTORY GENERAL: TOBACCO USE ARE YOU A:NONSMOKER LEARNING BARRIERS / SPECIAL NEEDS ORIENTED TO PLAN OF CARE: PATIENT, PAIN MANAGEMENT PATIENT, ORIENTED TO PLAN OF CARE: PATIENT, PAIN MANAGEMENT PATIENT. NEW PATIENT PAIN DIARY TODAY'S VISITNOTES FROM 0-10, WHAT LEVEL IS YOUR PAIN TODAY?0 PAIN CLINIC PFS, CLERGY, PUBLIC HEALTH REFERRALS PFS REFERRAL NEEDED?NO CLERGY REFERRAL NEEDED?NO PUBLIC HEALTH REFERRAL NEEDED?NO WAS THE PROVIDER NOTIFIED OF ANY PERTINENT INFO?NO PFS REFERRAL NEEDED?NO CLERGY REFERRAL NEEDED?NO PUBLIC HEALTH REFERRAL NEEDED?NO WAS THE PROVIDER NOTIFIED OF ANY PERTINENT INFO?NO REVIEW OF SYSTEMS CONSTITUTIONAL: ANY CHANGE IN YOUR MEDICAL CONDITION? NO . CHILLS NO . FEVER NO . INFECTION: DO YOU HAVE NEW INFECTIONS? NO . DO YOU HAVE HISTORY OF MRSA? NO . MUSCULOSKELETAL: ANY NEW PATTERNS OF PAIN OR NUMBNESS? YES, ENTIRE SCALP IS VERY SENSITIVE, SOMETIMES HIS SINUSES BOTHER HIM AT NIGHT AND HE FEELS THEY ARE RELATED . GASTROENTEROLOGY: ANY NEW CHANGE IN BOWEL CONTROL? NO . GENITOURINARY: ANY NEW CHANGE IN BLADDER CONTROL? NO . IS THERE A CHANCE YOU COULD BE ? NO . HEMATOLOGY/LYMPH: DO YOU TAKE ANY BLOOD THINNERS? (FOR EXAMPLE- COUMADIN, PLAVIX, AGGRENOX, PLATEL, PRADAXA, OR XARELTO) NO . WHEN WAS YOUR LAST DOSE? DATE: TIME: . NEUROLOGY: HAVE YOU FALLEN IN THE PAST 6 MONTHS? NO . ANY NEW EXTREMITY NUMBNESS OR WEAKNESS? NO . CARDIOLOGY: DO YOU HAVE A PACEMAKER OR DEFIBRILLATOR? NO . RESPIRATORY: HAVE YOU BEEN SICK IN THE PAST WEEK? NO . FEVER NO . FLU LIKE SYMPTOMS? NO . COUGH NO . INTEGUMENTARY: DO YOU HAVE ANY RASHES OR OPEN SORES? NO . ALLERGIC/IMMUNO: ARE YOU ALLERGIC TO SHELLFISH OR IV DYE? NO . ANY NEW ALLERGIES? NO . PSYCHIATRIC: DO YOU HAVE THOUGHTS OF HURTING YOURSELF OR SOMEONE ELSE? NO . ARE YOU ABUSED, NEGLECTED, OR IN AN UNSAFE ENVIRONMENT? NO . ENDOCRINOLOGY: ARE YOU DIABETIC? NO . OTHER: DO YOU NEED ANY PRESCRIPTIONS? NO . IF YES, PLEASE LIST: ____ . ANY NEW PROBLEMS WITH YOUR MEDICATIONS? NO . WHEN DID YOU LAST EAT? ____ . WHEN DID YOU LAST DRINK? ____ . WHAT DID YOU LAST DRINK? ____ . NAME OF PERSON DRIVING YOU HOME? ____ . DO YOU HAVE ANY OTHER QUESTIONS OR CONCERNS NO . PSYCHOLOGY: ARE YOU RECEIVING COUNSELING? THROUGH [facility] FOR ISSUES WITH MARIJUANA. . REVIEWED BY: PROVIDER: VADIM LAZO . VITAL SIGNS WT 160 LBS, HT 5'6.5", BMI 25.44 INDEX, BP 136/85 MM HG, HR 74 /MIN, RR 16 /MIN, TEMP 96.0 F, OXYGEN SAT % 97, NA INITIALS TL 1115, REVIEWED BY: AD. EXAMINATION GENERAL EXAMINATION: PSYCHALERT , ORIENTED X 3 , ANXIOUS, AFFECT FLAT, GOOD EYE CONTACT. LUNGS:CLEAR TO AUSCULTATION BILATERALLY. HEART:HEART RATE REGULAR. MUSCULOSKELETAL:MUSCLE STRENGTH TESTING 5/5 BILATERAL UPPER AND LOWER EXTREMITIES. POSTURE SLIGHTLY STOOPED. GAIT RAPID, NONANTALGIC. SKIN:HYPERPIGMENTED PATCHES NOTED ON RIGHT SCALP FROM JUST ABOVE RIGHT EAR TO THE VERTEX. AREAS HYPERSENSATIVE TO LIGHT TOUCH. NEUROLOGIC EXAM:CN'S II-XII GROSSLY INTACT. EOM'S INTACT WITHOUT NYSTAGMUS. NO VIITH NERVE WEAKNESS APPRECIATED ON RIGHT. . 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 PROCEDURE CODES FA211 ESTABILISHED PATIENT [facility] FACILITY CHARGE I2657 BP SCR PRFRM RCMDD DEFIND SCR INTVL G7889 PAIN ASSESS POS TOOL F/U PLAN DOC 3016F PT SCRND UNHLTHY OH USE 1124F ACP DISCUSS-NO DSCNMKR DOCD 1036F TOBACCO NON-USER 0518F FALL PLAN OF CARE DOCD G8427 DOC MEDS VERIFIED W/PT OR RE G8420 BMI<30 AND >=22 CALC & DOCU DISPOSITION & COMMUNICATION FOLLOW UP CALL IF APPOINTMENT NEEDED ELECTRONICALLY SIGNED BY KENNETH JACOBSON ON 06/11/2016 AT 11:05 AM EST DISCLAIMER : THIS IS A VISIT SUMMARY EXTRACTED FROM THE [facility] CHART. IT IS NOT A COPY OF THE [facility] PROGRESS NOTE. RUSTAM
== END ==
LOC: M PAIN 11:00
PROVIDERS: ATTEND Nurse Practitioner Family
DX: Z09 Encounter for follow-up examination after completed treatment for conditions other than malignant neoplasm (principal); G89.29 Other chronic pain; B02.29 Other postherpetic nervous system involvement; F31.12 Bipolar disorder, current episode manic without psychotic features, moderate; F12.20 Cannabis dependence, uncomplicated; K50.919 Crohn's disease, unspecified, with unspecified complications; Z86.19 Personal history of other infectious and parasitic diseases; Z88.8 Allergy status to other drugs, medicaments and biological substances; Z79.891 Long term (current) use of opiate analgesic; Z79.899 Other long term (current) drug therapy
CPT/HCPCS: 90834; G0463

== ENCOUNTER 2016-05-21 11:00 | Outpatient (RCR) | payer MEDICARE, OTHER ==
[~2016-05-21 11:00] MED LIST changes: -TAMSULOSIN 0.4 MG CAP As Ordered ONE
== END 2016-05-26 | disposition home or self-care (01) ==
LOC: M OUTALCOH 11:00
PROVIDERS: ATTEND Psychiatry & Neurology Psychiatry
DX: F12.20 Cannabis dependence, uncomplicated (principal)

== ENCOUNTER 2016-06-08 10:00 | Outpatient (RCR) | payer MEDICARE, OTHER | END 2016-06-23 | LOC: M OUTALCOH 10:00 | PROVIDERS: ATTEND Psychiatry & Neurology Psychiatry | DX: F12.20 Cannabis dependence, uncomplicated (principal) ==

== ENCOUNTER 2016-07-22 14:00 | Outpatient (RCR) | payer MEDICARE, OTHER | END 2016-07-24 | LOC: M OUTALCOH 14:00 | PROVIDERS: ATTEND Psychiatry & Neurology Psychiatry | DX: F12.20 Cannabis dependence, uncomplicated (principal) ==

== ENCOUNTER 2016-08-06 13:00 | Outpatient (RCR) | payer MEDICARE, OTHER | END 2016-08-23 | LOC: M OUTALCOH 13:00 | PROVIDERS: ATTEND Psychiatry & Neurology Psychiatry | DX: F12.20 Cannabis dependence, uncomplicated (principal) ==

== ENCOUNTER 2016-09-09 15:26 | Outpatient (RCR) | payer MEDICARE, OTHER | END 2016-09-23 | LOC: M OUTALCOH 15:26 | PROVIDERS: ATTEND Psychiatry & Neurology Psychiatry | DX: F12.20 Cannabis dependence, uncomplicated (principal) ==

== ENCOUNTER 2016-10-20 11:00 | Outpatient (RCR) | payer MEDICARE, OTHER ==
[~2016-10-20 11:00] MED LIST changes: -FOLI1TAB2 PO; +FOLI1TAB4 PO; -ONDA1TAB15 PO; +ONDA4TAB5 PO; -TRAZ150T14 PO; +TRAZ1TAB14 PO
== END 2016-10-23 | disposition home or self-care (01) ==
LOC: M OUTALCOH 11:00
PROVIDERS: ATTEND Psychiatry & Neurology Psychiatry
DX: F12.20 Cannabis dependence, uncomplicated (principal)

== ENCOUNTER 2016-11-05 09:00 | Outpatient (RCR) | payer MEDICARE, OTHER | END 2016-11-23 | LOC: M OUTALCOH 09:00 | PROVIDERS: ATTEND Psychiatry & Neurology Psychiatry | DX: F12.20 Cannabis dependence, uncomplicated (principal) ==

== ENCOUNTER 2016-12-10 11:00 | Outpatient (RCR) | payer MEDICARE, OTHER | END 2016-12-24 | LOC: M OUTALCOH 11:00 | PROVIDERS: ATTEND Psychiatry & Neurology Psychiatry | DX: F12.20 Cannabis dependence, uncomplicated (principal) ==

== ENCOUNTER 2017-01-15 10:56 | Outpatient (RCR) | payer MEDICARE, OTHER | END 2017-01-23 | LOC: M OUTALCOH 10:56 | PROVIDERS: ATTEND Psychiatry & Neurology Psychiatry | DX: F12.20 Cannabis dependence, uncomplicated (principal) ==

== ENCOUNTER 2017-09-02 18:38 | Inpatient (IN) | payer MEDICARE, OTHER ==
[2017-09-02 19:33] LABS: HEMATOCRIT 45.8 % (42.0-52.0); HEMOGLOBIN 16.2 g/dl (13.5-17.5); MEAN CORPUSCULAR HEMOGLOBIN 31.5 pg (27.0-33.0); MEAN CORPUSCULAR HGB CONC 35.4 g/dl (32.0-36.5); MEAN CORPUSCULAR VOLUME 89.1 fl (80.0-96.0); PLATELET COUNT, AUTOMATED 365 10^3/uL (150-450); RED BLOOD COUNT 5.14 10^6/uL (4.30-6.10); RED CELL DISTRIBUTION WIDTH 13.2 % (11.5-14.5); WHITE BLOOD COUNT 9.9 10^3/uL (4.0-10.0)
[2017-09-02 19:57] LABS: AMPHETAMINES LEVEL URINE NEGATIVE (NEGATIVE); BARBITURATES URINE NEGATIVE (NEGATIVE); BENZODIAZEPINES URINE NEGATIVE (NEGATIVE); CANNABINOIDS URINE POSITIVE (NEGATIVE); COCAINE METABOLITE URINE NEGATIVE (NEGATIVE); METHADONE URINE NEGATIVE (NEGATIVE); OPIATES URINE NEGATIVE (NEGATIVE); PHENCYCLIDINE URINE NEGATIVE (NEGATIVE)
[2017-09-02 20:07] LABS: ALBUMIN 4.1 GM/DL (3.2-5.2); ALBUMIN/GLOBULIN RATIO 1.03 (1.00-1.93); ALKALINE PHOSPHATASE 77 U/L (45-117); ALT/SGPT 62 U/L (12-78); ANION GAP 10 MEQ/L (8-16); AST/SGOT 42 U/L (7-37); BILIRUBIN,DIRECT < 0.1 MG/DL (0.0-0.2); BILIRUBIN,TOTAL 0.4 MG/DL (0.2-1.0); BLOOD UREA NITROGEN 6 MG/DL (7-18); CALCIUM LEVEL 9.4 MG/DL (8.5-10.1); CARBON DIOXIDE LEVEL 26 MEQ/L (21-32); CHLORIDE LEVEL 97 MEQ/L (98-107); CREATININE FOR GFR 0.93 MG/DL (0.70-1.30); ETHYL ALCOHOL (ETHANOL) 0.039 % (0.000-0.010); GLOMERULAR FILTRATION RATE > 60.0 (>56); GLUCOSE, FASTING 102 MG/DL (70-100); POTASSIUM SERUM 3.6 MEQ/L (3.5-5.1); SALICYLATE LEVEL < 1.7 MG/DL (5.0-30.0); SODIUM LEVEL 133 MEQ/L (136-145); TOTAL PROTEIN 8.1 GM/DL (6.4-8.2)
[2017-09-02 20:08] LABS: ACETAMINOPHEN LEVEL < 2.0 UG/ML (10.0-30.0)
[2017-09-02] MEDS ORDERED: MAALOX 30 ML SUSP *UDC PO (21:00)
[2017-09-02] MEDS ORDERED: MOM 30ML SUSPENSION UDC PO (21:00)
[2017-09-02] MEDS: traZODone 50 MG TAB PO (22:55)
[2017-09-02] MEDS ORDERED: HYDROCORTISONE 1% OINTMENT 30GM EXT (23:45)
[2017-09-02] MEDS ORDERED: LOPERAMIDE 2 MG CAP PO (23:45)
[2017-09-03] MEDS: sulfaSALAzine 500 MG TABEC PO ×4 (02:01→21:52)
[2017-09-03] MEDS: CALCIUM CARBONATE 500 MG CHEW U/D PO ×3 (02:02→21:52)
[2017-09-03] MEDS: VITAMIN D (CHOLECALCIFEROL) 400 INTERNATIONAL UNITS TAB PO ×3 (02:02→21:52)
[2017-09-03] MEDS: FLUoxetine 20 MG CAP PO (08:00)
[2017-09-03] MEDS: FAMOTIDINE 20 MG TAB PO ×2 (08:01→21:52)
[2017-09-03] MEDS: POTASSIUM CITRATE 1080 MG (10MEQ) TAB PO ×2 (08:01→17:32)
[2017-09-03] MEDS: INFLUENZA QUADRIVALENT PF VACCINE 0.5ML SYRINGE (90686) IM (08:03)
[2017-09-03] MEDS ORDERED: MERCAPTOPURINE 50 MG PO (09:00)
[2017-09-03 10:32] LABS: ALBUMIN/GLOBULIN RATIO 1.03 (1.00-1.93); ALKALINE PHOSPHATASE 73 U/L (45-117); ALT/SGPT 55 U/L (12-78); ANION GAP 8 MEQ/L (8-16); AST/SGOT 35 U/L (7-37); BILIRUBIN,TOTAL 0.5 MG/DL (0.2-1.0); BLOOD UREA NITROGEN 13 MG/DL (7-18); CALCIUM LEVEL 9.8 MG/DL (8.5-10.1); CARBON DIOXIDE LEVEL 27 MEQ/L (21-32); CHLORIDE LEVEL 104 MEQ/L (98-107); CREATININE FOR GFR 1.21 MG/DL (0.70-1.30); GLOMERULAR FILTRATION RATE > 60.0 (>56); GLUCOSE, FASTING 99 MG/DL (70-100); POTASSIUM SERUM 4.5 MEQ/L (3.5-5.1); SODIUM LEVEL 139 MEQ/L (136-145); TOTAL PROTEIN 7.9 GM/DL (6.4-8.2)
[2017-09-03 10:45] LABS: HEPATITIS B SURFACE ANTIGEN NEGATIVE (NEGATIVE)
[2017-09-03 11:11] LABS: HEPATITIS B CORE ANTIBODY IGM NEGATIVE (NEGATIVE); HEPATITIS C VIRUS ABY INDEX < 0.0 INDEX (<0.8)
[2017-09-03 11:14] LABS: HEPATITIS A ANTIBODY IGM NEGATIVE (NEGATIVE)
[2017-09-03] MEDS: traZODone 50 MG TAB PO (22:47)
[2017-09-04] MEDS: VITAMIN D (CHOLECALCIFEROL) 400 INTERNATIONAL UNITS TAB PO ×2 (08:07→21:29)
[2017-09-04] MEDS: sulfaSALAzine 500 MG TABEC PO ×3 (08:07→21:30)
[2017-09-04] MEDS: FLUoxetine 20 MG CAP PO (08:07)
[2017-09-04] MEDS: POTASSIUM CITRATE 1080 MG (10MEQ) TAB PO ×2 (08:07→17:09)
[2017-09-04] MEDS: FAMOTIDINE 20 MG TAB PO ×2 (08:07→21:30)
[2017-09-04] MEDS: CALCIUM CARBONATE 500 MG CHEW U/D PO ×2 (08:07→21:30)
[2017-09-04] MEDS: traZODone 50 MG TAB PO (23:09)
[2017-09-05] MEDS: CALCIUM CARBONATE 500 MG CHEW U/D PO ×2 (08:46→21:05)
[2017-09-05] MEDS: FLUoxetine 20 MG CAP PO (08:46)
[2017-09-05] MEDS: FAMOTIDINE 20 MG TAB PO ×2 (08:46→21:05)
[2017-09-05] MEDS: VITAMIN D (CHOLECALCIFEROL) 400 INTERNATIONAL UNITS TAB PO ×2 (08:46→21:05)
[2017-09-05] MEDS: sulfaSALAzine 500 MG TABEC PO ×3 (08:46→21:05)
[2017-09-05] MEDS: POTASSIUM CITRATE 1080 MG (10MEQ) TAB PO ×2 (08:47→17:11)
[2017-09-05] MEDS: ACETAMINOPHEN TAB 650MG DOSE (2X325MG) PO ×2 (09:42→17:54)
[2017-09-05] MEDS: traZODone 50 MG TAB PO (22:46)
[2017-09-06] MEDS: PILL CRUSHER/CUTTER 1 EACH XX (08:10)
[2017-09-06] MEDS: FAMOTIDINE 20 MG TAB PO (08:11)
[2017-09-06] MEDS: POTASSIUM CITRATE 1080 MG (10MEQ) TAB PO (08:11)
[2017-09-06] MEDS: VITAMIN D (CHOLECALCIFEROL) 400 INTERNATIONAL UNITS TAB PO (08:11)
[2017-09-06] MEDS: FLUoxetine 20 MG CAP PO (08:11)
[2017-09-06] MEDS: CALCIUM CARBONATE 500 MG CHEW U/D PO (08:11)
[2017-09-06] MEDS: sulfaSALAzine 500 MG TABEC PO (08:12)
== END 2017-09-06 14:00 | disposition home or self-care (01) | DRG 897 ==
LOC: M ED 18:38 → M ED INP 20:54 → M PSY 22:00
DX: F19.94 Other psychoactive substance use, unspecified with psychoactive substance-induced mood disorder (principal); E87.1 Hypo-osmolality and hyponatremia; F31.9 Bipolar disorder, unspecified; F12.90 Cannabis use, unspecified, uncomplicated; F10.10 Alcohol abuse, uncomplicated; Z79.899 Other long term (current) drug therapy; Z88.5 Allergy status to narcotic agent; N40.0 Benign prostatic hyperplasia without lower urinary tract symptoms; K21.9 Gastro-esophageal reflux disease without esophagitis; N32.81 Overactive bladder; K52.9 Noninfective gastroenteritis and colitis, unspecified; R94.5 Abnormal results of liver function studies

== ENCOUNTER → 2017-10-05 | Outpatient (CLI) | payer MEDICARE, OTHER | LOC: M OUTALCOH 09:34 | DX: Z13.9 Encounter for screening, unspecified (principal); F12.20 Cannabis dependence, uncomplicated | CPT/HCPCS: H0001 ==

== ENCOUNTER 2017-10-18 09:02 | Outpatient (RCR) | payer MEDICARE, OTHER | END 2017-10-23 | LOC: M OUTALCOH 09:02 | DX: F12.20 Cannabis dependence, uncomplicated (principal) | CPT/HCPCS: 90834 ==

== ENCOUNTER 2017-10-25 14:02 | Outpatient (RCR) | payer MEDICARE, OTHER | END 2017-11-23 | LOC: M OUTALCOH 11-03 09:00 | DX: F12.20 Cannabis dependence, uncomplicated (principal) | CPT/HCPCS: 90834 ==

== ENCOUNTER 2017-12-30 15:24 | Outpatient (RCR) | payer MEDICARE, OTHER | END 2018-01-23 | LOC: M OUTALCOH 01-13 10:30 | DX: F12.20 Cannabis dependence, uncomplicated (principal) | CPT/HCPCS: 90834 ==

== ENCOUNTER 2018-02-17 11:17 | Outpatient (RCR) | payer MEDICARE, OTHER | END 2018-02-23 | LOC: M OUTALCOH 11:17 | DX: F12.20 Cannabis dependence, uncomplicated (principal) | CPT/HCPCS: 90832 ==

== ENCOUNTER 2018-03-24 12:58 | Outpatient (RCR) | payer MEDICARE, OTHER | END 2018-03-25 | LOC: M OUTALCOH 12:58 | DX: F12.20 Cannabis dependence, uncomplicated (principal) | CPT/HCPCS: 90834 ==

== ENCOUNTER 2018-05-09 10:34 | Outpatient (RCR) | payer MEDICARE, OTHER ==
[~2018-05-09 10:34] MED LIST changes: +ABIL1TAB11 PO; -ALEN70TA39 PO; +ALEN70TA57 PO; +ARIP1TAB6; +CHEW500C2 PO; +CYAN1000VL IM; +FLUO40CA; +FLUO40CA PO; +FOLI1TAB11 PO; -FOLI1TAB4 PO; +HYDR1OIN PR; -HYDR1OIN TOP; +MED MARIJUANA; +RANI150T PO; +RANI1SYP PO; +VITA400T2 PO; -ZOFR20TA PO; +ZOFR4TAB16 PO; +[UNRECOGNIZED DRUG - OTHER]
== END 2018-05-26 ==
LOC: M OUTALCOH 10:34
PROVIDERS: ATTEND Psychiatry & Neurology Psychiatry
DX: F12.20 Cannabis dependence, uncomplicated (principal)

== ENCOUNTER 2018-06-30 11:07 | Outpatient (RCR) | payer MEDICARE, OTHER | END 2018-07-24 | LOC: M OUTALCOH 11:07 | PROVIDERS: ATTEND Psychiatry & Neurology Psychiatry | DX: F12.20 Cannabis dependence, uncomplicated (principal) ==

== ENCOUNTER → 2019-01-26 | Outpatient (CLI) | payer MEDICARE, OTHER ==
[~2019-01-26] MED LIST changes: -ALEN70TA57 PO; +ALEN70TA74 PO; -ARIP10TAB PO; +ARIP1TAB PO; -OMEP20CA3 PO; +OMEP20CA4 PO
--- NOTE | 2019-01-26 14:19 | REP ---
RENAL ULTRASOUND: Real-time sonographic of the kidneys performed and demonstrates both kidneys to be normal in size and echotexture, right kidney measuring 12.5 x 6.0 x 4.8 cm and left kidney 12.5 x 4.5 x 5.4 cm. There is no hydronephrosis bilaterally. Focal cortical scar is seen in the lower left kidney. No definite renal stones are seen bilaterally. Urinary bladder is mildly distended and demonstrates bilateral ureteral jets with Doppler color evaluation. IMPRESSION: No evidence of hydronephrosis or nephrolithiasis. Electronically Signed by Mina Yeung MD 01/26/2019 05:58 P
== END ==
LOC: M RAD 11:55
PROVIDERS: ATTEND Nurse Practitioner Family
DX: N20.0 Calculus of kidney (principal)

== ENCOUNTER → 2020-01-30 | Outpatient (CLI) | payer MEDICARE, OTHER ==
[~2020-01-30] MED LIST changes: +OMEP1CAP73 PO; -OMEP20CA4 PO; +ONDA-83 PO; -ONDA4TAB5 PO
--- NOTE | 2020-01-31 10:20 | ECWPNPC ---
PATIENT NAME: GUILLERMO LEI : 1965 GENDER: MALE VISIT DATE: 01/30/2020 DISCHARGE DATE: 01/30/20 0907 VISIT LOCKED DATE TIME: PHYSICIAN: LINDSEY BELLAMY RESOURCE: LINDSEY BELLAMY REASON FOR APPOINTMENT 1. CHRONIC JOINT PAIN HISTORY OF PRESENT ILLNESS GENERAL: -54-YEAR-OLD MALE IN FOR INITIAL PAIN CONSULT. 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 HE RATES HIS PAIN CURRENTLY AT A 5 OUT OF 10 AND DESCRIBES IT ACHING. PATIENT ADMITS TO USE OF MARIJUANA TO HELP CONTROL HIS CROHN'S DISEASE AND THE PAIN. HE FURTHER STATES THE MARIJUANA HAS BEEN BENEFICIAL IN CONTROLLING HIS SYMPTOMS. FALL RISK SCREENING: SCREENING :NO FALLS REPORTED IN THE LAST YEAR PAIN SCREENING: PATIENT HAS A COMPLAINT OF ACUTE OR CHRONIC PAIN :YES LOCATION OF PAIN:LOW BACK, OTHER: BILATERAL ARMS, BILATERAL LEGS JOINT PAIN. INTENSITY OF PAIN (SCALE OF 1 TO 10):5 WHAT DOES YOUR PAIN FEEL LIKE:ACHING DURATION:INTERMITTENT, AWAKENS FROM SLEEP PAIN IS INCREASED BY:ACTIVITIES PAIN IS DECREASED BY:OTHERS PATIENT SMOKES MARIJUANA FOR PAIN REDUCTION. NURSING NOTE: - - -. PAIN CENTER INTAKE QUESTIONS: DO YOU HAVE A HISTORY OF MRSA? :NO DO YOU TAKE A BLOOD THINNERS? :NO DO YOU HAVE ANY BLEEDING DISORDERS? :NO ANY NEW NUMBNESS OR WEAKNESS IN YOUR LEGS OR ARMS? :NO NUMBNESS IN LEFT FOOT ANY PACEMAKER,DEFIBRILLATOR, OR DORSAL COLUMN STIMULATOR? :NO DO YOU HAVE ANY RASHES OR OPEN SORES? :NO ARE YOU ALLERGIC TO IV DYE? :NO ARE YOU DIABETIC? :NO ANY NEW PROBLEMS WITH YOUR MEDICATIONS? :NO HAVE YOU RECEIVED A VACCINE IN THE PAST 30 DAYS? :YES PATIENT HAD A FLU SHOT YESTERDAY. DO YOU PLAN TO RECEIVE A VACCINE IN THE NEXT 21 DAYS? :NO DO YOU NEED ANY PRESCRIPTION? :NO DO YOU TAKE ANY IMMUNOSUPPRESSIVE MEDICATIONS? :YES MERCAPTOPURINE 75MG ONCE A DAY CURRENT MEDICATIONS TAKING PROZAC 40 MG CAPSULE ORALLY TAKING MERCAPTOPURINE 75MG ONCE A DAY TAKING MAGNESIUM 400MG ONCE A DAY TAKING CHOLECALCIFEROL 2000UNITS TWICE A DAY TAKING CALCIUM 500MG TWICE A DAY TAKING FAMOTIDINE 40 MG TABLET ORALLY TWICE A DAY TAKING I46-ATAPIH INJECTIONS TAKING POTASSIUM CHLORIDE 40 MEQ/15ML (20%) SOLUTION 1 1/2 TBLS ORALLY DAILY TAKING ABILIFY 5 MG TABLET 1/2 TABLET ORALLY BID NOT-TAKING ALENDRONATE SODIUM 70 MG TABLET 1 TABLET ORALLY WEEK NOT-TAKING LOMOTIL 2.5-0.025 MG TABLET 1 TABLET NEEDED ORALLY FOUR TIMES A DAY NOT-TAKING IMODIUM A-D 2 MG TABLET 1 TABLET ORALLY 8 TIME(S) A DAY NEEDED NOT-TAKING MERCAPTOPURINE 50 MG TABLET 1 AND 1/2 TABS ORALLY DAILY NOT-TAKING SULFAZINE 500 MG TABLET 1 TABLET ORALLY 6 TABS DAILY NOT-TAKING OMEPRAZOLE 20 MG CAPSULE DELAYED RELEASE 1 CAPSULE ORALLY ONCE A DAY NOT-TAKING VITAMIN D3 39714 UNIT CAPSULE ORALLY 2X WEEKLY NOT-TAKING VITAMIN B12 1000 UNITS INJECTION SUBCUTANEOUSLY MONTHLY NOT-TAKING LIDOCAINE 5 % OINTMENT 1 APPLICATION TO AFFECTED AREA NEEDED EXTERNALLY THREE TIMES A DAY NOT-TAKING TAMSULOSIN HCL 0.4 MG CAPSULE 1 CAPSULE 30 MINUTES AFTER THE SAME MEAL EACH DAY ORALLY ONCE A DAY NOT-TAKING OXYCODONE-ACETAMINOPHEN 5-325 MG TABLET 1 TABLET ORALLY EVERY 6 HOURS NEEDED FOR PAIN (MDD 4) NOT-TAKING LORAZEPAM 0.5 MG TABLET 1 TABLET NEEDED ORALLY BID NOT-TAKING POTASSIUM CITRATE ER 15 MEQ (1620 MG) TABLET EXTENDED RELEASE 1 TABLET WITH MEALS ORALLY TWICE A DAY MEDICATION LIST REVIEWED AND RECONCILED WITH THE PATIENT PAST MEDICAL HISTORY CROHNS DISEASE SHINGLES KIDNEY STONES ALLERGIES DILAUDID: NAUSEA/VOMITING, RASH, ITCHING - ALLERGY GABAPENTIN: MOOD SWINGS, BOWEL SYMPTOMS - ALLERGY SURGICAL HISTORY MULTIPLE BOWEL RESECTIONS LAST ONE BEING 2001 KIDNEY STONES APPENDECTOMY LAZER SURGERY RIGHT KIDNEY WITH STENT PKLACEMENT FAMILY HISTORY NO FAMILY HISTORY DOCUMENTED. SOCIAL HISTORY GENERAL: TOBACCO USE ARE YOU A:NONSMOKER LATEX QUESTIONNAIRE LATEX ALLERGY : HAVE YOU EVER DEVELOPED ANY TYPE OF REACTION AFTER HANDLING LATEX PRODUCTS SUCH RUBBER GLOVES, CONDOMS, DIAPHRAGMS, BALLOONS, SOCKS, OR UNDERWEAR?NO LATEX ALLERGY : HAVE YOU EVER DEVELOPED ANY TYPE OF REACTION DURING OR AFTER DENTAL APPOINTMENT, VAGINAL/RECTAL EXAMINATION, SURGICAL PROCEDURE, OR ANY OTHER EXPOSURE?NO LATEX RISK : HAVE YOU EVER HAD ANY DIFFICULTY BREATHING OR HIVES AFTER EATING OR HANDLING ANY FRUITS, OR VEGETABLES; SUCH KIWI, BANANAS, STONE FRUITS, OR CHESTNUTSNO LATEX RISK : DO YOU HAVE A PREVIOUS PERSONAL HISTORY OF MORE THAN NINE SURGERIES, SPINA BIFIDA, OR REPEATED CATHERIZATIONS? NO LATEX RISK : ARE YOU FREQUENTLY EXPOSED TO LATEX PRODUCTS IN YOUR OCCUPATION?NO DATE ASKED : 01/30/2020 RECREATIONAL DRUG USE DRUG USE?YES PATIENT HAS ADMITTED TO SMOKING MARIJUANA FOR JOINT PAIN. LEARNING BARRIERS / SPECIAL NEEDS ORIENTED TO PLAN OF CARE: PATIENT, PAIN MANAGEMENT PATIENT, ORIENTED TO PLAN OF CARE: PATIENT, PAIN MANAGEMENT PATIENT. DOMESTIC VIOLENCE DO YOU FEEL SAFE IN YOUR ENVIRONMENT?YES NEW PATIENT PAIN DIARY TODAY'S VISITNOTES FROM 0-10, WHAT LEVEL IS YOUR PAIN TODAY?0 PAIN CLINIC PFS, CLERGY, PUBLIC HEALTH REFERRALS PFS REFERRAL NEEDED?NO CLERGY REFERRAL NEEDED?NO PUBLIC HEALTH REFERRAL NEEDED?NO WAS THE PROVIDER NOTIFIED OF ANY PERTINENT INFO?NO HAS THE PATIENT BEEN EDUCATED REGARDING HIS/HER PLAN OF CARE?YES HAS THE PATIENT BEEN EDUCATED REGARDING PAIN, THE RISK FOR PAIN, THE IMPORTANCE OF EFFECTIVE PAIN MANAGEMENT, AND THE PAIN ASSESSMENT PROCESS?YES ADVANCE DIRECTIVE ADVANCE DIRECTIVE DISCUSSED WITH PATIENT:NO PATIENT DOES NOT WANT A HEALTH CARE PROXY AT THIS TIME. HOSPITALIZATION/MAJOR DIAGNOSTIC PROCEDURE MULTIPLE FOR CHRONS RELATED ISSUES KIDNEY STONES 10/2015 REVIEW OF SYSTEMS CONSTITUTIONAL: ANY RECENT FEVER NO . CHILLS NO . WEIGHT CHANGE OF UNKNOWN REASONS NO . MUSCULOSKELETAL: ANY UNUSUAL JOINT PAIN OR SWELLING NOT MENTIONED NO . SYSTEMIC LUPUS NO . ANY NEUROMUSCULAR DISORDER NOT MENTIONED NO . LYME DISEASE NO . GASTROENTEROLOGY: ANY NEW CHANGE IN BOWEL CONTROL? NO . HISTORY OF LIVER DISORDER NOT MENTIONED NO . HISTORY OF UNUSUAL ABDOMINAL PAIN OR CRAMPING NOT MENTIONED NO . NO CONSTIPATION. GENITOURINARY: ANY NEW CHANGE IN BLADDER CONTROL? NO . ANY RENAL/KIDNEY CONDITON NOT MENTIONED NO . NEUROLOGY: HISTORY OF TBI NOT MENTIONED NO . OTHER NEW NUMBNESS OR PAIN PATTERNS NOT MENTIONED NO . NEW ONSET DIZZINESS OR NEUROLOGICAL CHANGES NOT MENTIONED NO . HISTORY OF SEVERE HEADACHES NOT MENTIONED NO . HISTORY OF STROKE OR NEUROLOGICAL DISORDER NOT MENTIONED NO . CARDIOLOGY: HEART SURGERY NO . CONGESTIVE HEART FAILURE/FLUID OVERLOAD NOT MENTIONED NO . HISTORY OF CHEST PAIN,IRREGULAR HEART BEAT NOT MENTIONED NO . RESPIRATORY: SHORTNESS OF BREATH ON EXERTION, WHEEZES, UNUSUAL COUGH NOT MENTIONED NO . ENDOCRINOLOGY: ADRENAL GLAND OR THYROID DISORDERS NOT MENTIONED NO . UNUSUAL URINATION, DIZZINESS OR LETHARGY NOT MENTIONED NO . VITAL SIGNS WT 170.8 LBS, HT 5'6.5", BMI 27.15 INDEX, BP 121/67 MM HG, HR 50 /MIN, RR 14 /MIN, TEMP 97.7 F, OXYGEN SAT % 98, REVIEWED BY: RUBÉN CRUZ CMA. EXAMINATION GENERAL EXAMINATION: GENERALNO ACUTE DISTRESS, WELL NOURISHED AND HYDRATED. PSYCHAPPROPRIATE MOOD AND AFFECT . LUNGS:CLEAR TO AUSCULTATION BILATERALLY, NO WHEEZES, RHONCHI, RALES. HEART:NO MURMURS, REGULAR RATE AND RHYTHM. ASSESSMENTS CROHN'S DISEASE, UNSPECIFIED, WITHOUT COMPLICATIONS - K50.90 (PRIMARY) TREATMENT CROHN'S DISEASE, UNSPECIFIED, WITHOUT COMPLICATIONS CLINICAL NOTES: 54-YEAR-OLD MALE IN FOR INITIAL PAIN CONSULT. GIVEN PRESENTING SYMPTOMS RECOMMENDED REFERRAL TO PALLIATIVE CARE FOR MEDICAL MARIJUANA WITH FOLLOW-UP IN ONE MONTH. PATIENT HAS EXPRESSED UNDERSTANDING OF AND WAS IN AGREEMENT WITH TREATMENT PLAN. GIVEN TIME TO ASK QUESTIONS AND EXPRESS CONCERNS. [facility]MEDICAL MARIJUANA PREVENTIVE MEDICINE PAIN CLINIC TEACHING: THE PATIENT HAS BEEN EDUCATED REGARDING PAIN, THE RISK FOR PAIN, THE IMPORTANCE OF EFFECTIVE PAIN MANAGEMENT, AND THE PAIN ASSESSMENT PROCESS. : DISCUSSED THE PATIENTS CARE OF PLAN. PATIENT ACKNOWLEDGE UNDERSTANDING. PROCEDURE CODES FA211 ESTABILISHED PATIENT [facility] CHARGE DISPOSITION & COMMUNICATION FOLLOW UP 4 WEEKS (REASON: CROHNS ) ELECTRONICALLY SIGNED BY CLIFTON LYNCH ON 01/31/2020 AT 10:18 AM EDT DISCLAIMER : THIS IS A VISIT SUMMARY EXTRACTED FROM THE [employer] CHART. IT IS NOT A COPY OF THE [employer] PROGRESS NOTE. RUSTAM
== END ==
LOC: M PAIN 08:15
PROVIDERS: ATTEND Family Medicine
DX: K50.90 Crohn's disease, unspecified, without complications (principal); Z88.5 Allergy status to narcotic agent; Z88.8 Allergy status to other drugs, medicaments and biological substances; Z79.899 Other long term (current) drug therapy

== ENCOUNTER → 2021-05-30 | Outpatient (REF) | payer MEDICARE, OTHER ==
[~2021-05-30] MED LIST changes: +ACYC1TAB4 PO; -ACYC800T PO; -ALEN70TA74 PO; +ALEN70TA82 PO; +CALC-362 PO; -CHEW500C2 PO; -HALO5TA PO; +HALO5TAB33 PO
== END ==
LOC: M LAB REF 17:14
PROVIDERS: ATTEND Internal Medicine Endocrinology, Diabetes & Metabolism
DX: E04.1 Nontoxic single thyroid nodule (principal)

== ENCOUNTER → 2021-08-05 | Outpatient (REF) | payer OTHER, MEDICARE | LOC: M LAB REF 17:09 | PROVIDERS: ATTEND Internal Medicine Endocrinology, Diabetes & Metabolism | DX: E04.1 Nontoxic single thyroid nodule (principal) ==

== ENCOUNTER → 2022-01-11 | Outpatient (CLI) | payer MEDICARE, OTHER ==
[~2022-01-11] MED LIST changes: +ALEN70TA87 PO; -FOSA70TA PO
== END ==
LOC: M LABSMTC 11:45
PROVIDERS: ATTEND Surgery
DX: Z20.822 Contact with and (suspected) exposure to COVID-19 (principal)

== ENCOUNTER 2022-07-02 10:27 | Emergency (ER) | payer MEDICARE, OTHER ==
[~2022-07-02] VITALS: Ht 170.2 cm; Wt 75.0 kg
[2022-07-02 11:03] LABS: HEMATOCRIT 46.1 % (42.0-52.0); HEMOGLOBIN 15.6 g/dl (13.5-17.5); MEAN CORPUSCULAR HEMOGLOBIN 31.8 pg (27.0-33.0); MEAN CORPUSCULAR HGB CONC 33.8 g/dl (32.0-36.5); MEAN CORPUSCULAR VOLUME 93.9 fl (80.0-96.0); PLATELET COUNT, AUTOMATED 411 10^3/uL (150-450); RED BLOOD COUNT 4.91 10^6/uL (4.30-6.10); WHITE BLOOD COUNT 8.3 10^3/uL (4.0-10.0)
[2022-07-02 11:22] LABS: ETHYL ALCOHOL (ETHANOL) 0.041 % (0.000-0.010)
[2022-07-02 11:24] LABS: ACETAMINOPHEN LEVEL < 2.0 UG/ML (10.0-20.0); SALICYLATE LEVEL < 3.0 MG/DL (<30)
[2022-07-02 11:29] LABS: ALKALINE PHOSPHATASE 105 U/L (46-116); ALT/SGPT 37 U/L (7.0-40); AST/SGOT 46 U/L (<34); BILIRUBIN,DIRECT 0.1 MG/DL (<0.4); BILIRUBIN,TOTAL 0.6 MG/DL (0.3-1.2); BLOOD UREA NITROGEN 10 MG/DL (9-23); CALCIUM LEVEL 9.5 MG/DL (8.5-10.1); CARBON DIOXIDE LEVEL 26 MMOL/L (20-31); CHLORIDE LEVEL 102 MMOL/L (98-107); CREATININE FOR GFR 0.81 MG/DL (0.70-1.30); GLOMERULAR FILTRATION RATE > 60.0 (>56); GLUCOSE, FASTING 121 MG/DL (60-100); SODIUM LEVEL 138 MMOL/L (136-145); THYROID STIMULATING HORMONE 0.904 uIU/ML (0.55-4.78); TOTAL PROTEIN 7.3 G/DL (5.7-8.2)
[2022-07-02 12:22] LABS: AMPHETAMINES LEVEL URINE NEGATIVE (NEGATIVE); BARBITURATES URINE NEGATIVE (NEGATIVE); BENZODIAZEPINES URINE NEGATIVE (NEGATIVE); COCAINE METABOLITE URINE NEGATIVE (NEGATIVE)
[2022-07-02 12:23] LABS: METHADONE URINE NEGATIVE (NEGATIVE); OPIATES URINE NEGATIVE (NEGATIVE); PHENCYCLIDINE URINE NEGATIVE (NEGATIVE)
[2022-07-02 12:26] LABS: CANNABINOIDS URINE POSITIVE (NEGATIVE)
[2022-07-02 17:29] VITALS: BP 155/89
[2022-07-03] MEDS ORDERED: OMEP40CA5 PO (16:54)
[2022-07-03] MEDS ORDERED: LEVO100T5 (16:54)
== END 2022-07-02 17:33 | disposition home or self-care (01) ==
LOC: M ED 10:27
DX: F31.89 Other bipolar disorder (principal); R45.851 Suicidal ideations; Z79.891 Long term (current) use of opiate analgesic

== ENCOUNTER 2022-07-03 16:22 | Emergency (ER) | payer MEDICARE, OTHER ==
[~2022-07-03] VITALS: Ht 170.2 cm; Wt 73.4 kg
[2022-07-03] MEDS ORDERED: OMEP40CA5 PO (16:54)
[2022-07-03] MEDS ORDERED: LEVO100T5 (16:54)
[2022-07-03 17:34] VITALS: BP 149/75
== END 2022-07-03 17:38 | disposition home or self-care (01) ==
LOC: M ED 16:22
DX: F41.9 Anxiety disorder, unspecified (principal); I10 Essential (primary) hypertension; Z63.79 Other stressful life events affecting family and household; R00.1 Bradycardia, unspecified; K21.9 Gastro-esophageal reflux disease without esophagitis; F32.A Depression, unspecified; F31.9 Bipolar disorder, unspecified; F12.10 Cannabis abuse, uncomplicated; F10.10 Alcohol abuse, uncomplicated; Z87.442 Personal history of urinary calculi; Z88.5 Allergy status to narcotic agent; Z88.8 Allergy status to other drugs, medicaments and biological substances; Z79.810 Long term (current) use of selective estrogen receptor modulators (SERMs); Z79.1 Long term (current) use of non-steroidal anti-inflammatories (NSAID); Z79.899 Other long term (current) drug therapy
CPT/HCPCS: 93005; 99284; G0463

== ENCOUNTER → 2022-09-16 | Outpatient (CLI) | payer MEDICARE, OTHER ==
[~2022-09-16] MED LIST changes: +LEVO100T5; +OMEP40CA5 PO
== END ==
LOC: M PLAIMG 09:17
PROVIDERS: ATTEND Nurse Practitioner Family
DX: N20.0 Calculus of kidney (principal); Z90.49 Acquired absence of other specified parts of digestive tract; K63.89 Other specified diseases of intestine